=== PATIENT | male | born 1965 | race Caucasian/White ===

== ENCOUNTER → 2017-10-28 08:36 | Outpatient (CLI) | payer OTHER, SELFPAY ==
[2017-10-28 11:10] LABS: LDH 174 U/L (87-241)
[2017-10-29 11:59] LABS: AFP, Tumor Marker 1.8 ng/mL (0.0-8.3); HCG BETA-SUBUNIT QUANT. < 1 mIU/mL (0-3)
== END ==
PROVIDERS: Family Provider Family Medicine; PCP Family Medicine; Visit Provider Urology
DX: C62.90 Malignant neoplasm of unspecified testis, unspecified whether descended or undescended (principal)
CPT/HCPCS: 36415; 82105; 83615; 84702

== ENCOUNTER 2018-03-06 09:39 | Emergency (ER) | payer OTHER, SELFPAY ==
[2018-03-06 09:41] VITALS: BP 110/69; PULSE 54; RESP 16; TEMP 36.4; O2SAT 99; BMI 26.5
--- NOTE | 2018-03-06 09:45 | CT_ITS ---
STUDY: CT BRAIN WITHOUT CONTRAST REASON FOR EXAM: Male, 52 years old. Syncope while having bowel movement RADIATION DOSAGE (If Supplied By Facility): CTDIvol = ( 44.99 ) mGy, DLP = ( 745.49 ) mGycm TECHNIQUE: Transaxial CT imaging of the brain was performed without administration of intravenous contrast material. Individualized dose optimization techniques were used for this CT. COMPARISON: None. FINDINGS: Normal soft tissue structures. Normal calvarium. Normal size ventricles and extra-axial spaces for the patient's age. Normal white matter tracts of the cerebral hemispheres. Normal basal ganglia and thalami. Normal brainstem. Normal cerebellum. There is no intracranial hemorrhage. There are no findings of an acute ischemic infarction. Normal visualized paranasal sinuses. CT/Brain/Head without Contrast IMPRESSION: Normal unenhanced CT scan of the brain. Electronically Signed: Anthony Omer DO at 11:32 EDT Tel , Service support ,
--- NOTE | 2018-03-06 09:45 | EKG12_ITS ---
Test Reason : ALT MENTAL STATUS Blood Pressure : / mmHG Vent. Rate : 054 BPM Atrial Rate : 054 BPM P-R Int : 168 ms QRS Dur : 094 ms QT Int : 470 ms P-R-T Axes : 017 021 034 degrees QTc Int : 445 ms Sinus bradycardia Otherwise normal ECG Confirmed by PEREZ NELSON, GILLIAN ([id number]), news copy editor FOSTER KNUTSON ([id number]) on 03/08/2018 2:09:31 PM Referred By: HAYDEE Confirmed By:GILLIAN TODD MD
[2018-03-06 10:11] LABS: Absolute Lymphocyte Count 1.72 X10^3/ul (0.83-4.51); Absolute Neutrophil Count 3.7 X10^3/uL (2.0-7.7); Basophil# 0.03 X10^3/uL; Basophil% 0.5 % (0-1); Eosinophil# 0.17 X10^3/uL; Eosinophils% 2.9 % (0-5); Hematocrit 42.4 % (40-54); Lymphocyte # 1.72 X10^3/ul (4.0); Lymphocyte % 29.2 % (19-41); Mean Corpuscular Hgb 31.5 pg (27.0-32.0); Mean Corpuscular Volume 95.3 fL (80-94); Mean Platelet Vol. 12.2 fl (6.2-12.0); Monocyte% 5.1 % (0-10); Neutrophil # 3.66 X10^3/uL (2.7-7.7); Neutrophil % 62.1 % (47-70); Platelet Count 141 K/mm3 (150-450); RBC Distribution Width CV 13.1 % (11.6-14.6); RBC Distribution Width SD 45.3 fl (35.1-43.9); Red Blood Count 4.45 M/mm3 (4.6-6.2); White Blood Count 5.9 K/mm3 (4.4-11.0)
[2018-03-06 10:16] LABS: POSITIVE COUNT NO; POSITIVE DIFFERENTIAL NO; POSITIVE MORPHOLOGY NO
[2018-03-06 10:25] LABS: Anion Gap 4 (5-15); BUN 12 mg/dL (7-18); BUN/Creat Ratio 16.2 RATIO (10-20); Calcium,Total 8.1 mg/dL (8.5-10.1); Chloride 110 mmol/L (98-107); Creatinine, Serum 0.74 mg/dL (0.70-1.30); EST Glomerular Filtration Rate 117 mL/min (>60); Est Glom Filt Rate - Afr Amer 141 mL/min (>60); Estimated Creatinine Clearance 121.54 ml/min; Glucose 95 mg/dL (74-106); Potassium 3.8 mmol/L (3.5-5.1); Sodium Level 140 mmol/L (136-145)
[2018-03-06 10:30] VITALS: PULSE 56; RESP 18; O2SAT 98
--- NOTE | 2018-03-06 11:46 | NURSING ---
DR MAGALIS MEEKS
--- NOTE | 2018-03-06 11:56 | ED.DCSUM_ITS ---
- ER Visit Summary Date of Service: 03/06/18 Chief Complaint: Syncope History of Present Illness: The patient is a 52 M presenting for evaluation secondary to syncope. Patient was in the urology office today and he had a Urolift procedure performed. Patient was attempting to urinate after the procedure, and he passed out and struck the back of his head. states that he was a little bit confused after this. He then tried to urinate again and passed out again. Patient denies that he had any sort of chest pain or palpitations associated with this. No numbness or weakness or visual changes. He is not on any sort of anticoagulants. Physical Examination: Primary survey: Airway is patent, breath sounds equal bilateral, central peripheral pulses 2+ and symmetric, GCS 15 out of 15. Vitals within normal limits. Secondary survey: General: Well-nourished well-developed no acute distress Head: Normocephalic atraumatic Eyes: PERRLA, EOMI ENT: TMs clear no hemotympanum no drainage Neck: Nontender full range of motion, no step-offs noted Heart: Regular rate and rhythm no murmurs Lungs: Respirations nondistressed, lung sounds clear to auscultation bilaterally , chest nontender, normal chest excursion bilaterally Abdomen: Soft nontender nondistended normal bowel sounds no palpable abdominal masses Back: Nontender no step-offs noted Extremities: Nontender: Active full range of motion ?4 Skin: Normal color no trauma Neuro: Alert and oriented ?4, GCS 15 out of 15, no lateralizing neurological deficits. Test Results: CBC, chemistry, troponin unremarkable. EKG shows sinus bradycardia with a rate of [address] segments normal T waves normal intervals. CT brain found to be negative. Emergency Department Course and Treatment: Patient presented after passing out and striking his head. Workup was negative as noted above. Patient was trying to urinate when he passed out this seems like vagal event. He does not have any evidence of traumatic injury at this time, I do not believe that he requires observation admission for syncope. This point I believe the patient can safely be discharged. He will be discharged with outpatient follow-up with primary care. Disposition: Discharge Impression: 1. Vasovagal syncope This note was generated with [employer] dictation software. It may contain incorrect words, spelling, and punctuation that were not noted in review of the chart prior to signing ED Disposition - Plan for ED Patient: Disposition: Home or Assisted Living Chief Complaint: Mental Status Change Diagnosis: Vasovagal syncope Instructions: ED Syncope Vasovagal Referrals: Waldemar Steinberg MD [Primary Care Provider] - As Needed
--- NOTE | 2018-03-06 12:08 | NURSING ---
DR BLANCAS IN ER
[2018-03-06 12:12] VITALS: BP 113/69; PULSE 72; RESP 16; O2SAT 99
== END 2018-03-06 12:13 | disposition home or self-care (01) ==
PROVIDERS: Emergency Provider Emergency Medicine; Family Provider Family Medicine; PCP Family Medicine
DX: R55 Syncope and collapse (principal); I10 Essential (primary) hypertension; Z79.82 Long term (current) use of aspirin; Z79.899 Other long term (current) drug therapy
CPT/HCPCS: 70450; 80048; 84484; 85025; 93005; 99285

== ENCOUNTER 2018-05-24 05:22 | Emergency (ER) | payer OTHER, SELFPAY ==
[2018-05-24 05:23] VITALS: BP 130/85; PULSE 72; RESP 22; TEMP 36.8; O2SAT 98; BMI 26.4
--- NOTE | 2018-05-24 05:24 | ED.VISSUMM ---
- ER Visit Summary Date of Service: 05/24/18 Chief Complaint: Right foot swelling History of Present Illness: The patient is a 52 M presents to the emergency department with right foot swelling and pain. Patient states that he was bit by something on Tuesday evening. He suffered a bite to the dorsum of his right foot just at the base of his third and fourth toes. States that it was itching. Over the past 3 days, he began to develop some redness and worsening pain. He denies any fevers or chills. He has no history of diabetes. The patient does smoke. He denies any history of cellulitis or immunosuppression. He states that it was just more painful to walk on it over the past 2 days. Physical Examination: Exam is relatively unremarkable. Patient does have healing wound on the dorsum of the right foot between the third and fourth toes. There is some localized cellulitis and edema. His pulses are normal. There is no crepitus. There is no streaking up the leg. Foot is soft. No pain in the calf. Test Results: [] Emergency Department Course and Treatment: The patient has evidence of cellulitis of the foot. I do feel secondary to the skin breakdown. There is no streaking or crepitus. Do not suspect a dangerous process. He said the symptoms for 2 days. I do not suspect osteomyelitis. The patient will be treated with Bactrim and Keflex. He was counseled on concerning symptoms and reasons to return. I do want the patient to follow-up with his primary care physician in the next 48 hours for skin check or return with any worsening symptoms. He is comfortable with this plan of care. Treatment Plan: [] Disposition: Discharge Impression: Right foot cellulitis This note was generated with [employer] dictation software. It may contain incorrect words, spelling, and punctuation that were not noted in review of the chart prior to signing ED Disposition - Plan for ED Patient: Chief Complaint: Lower Extremity Injury Instructions: ED Infec Skin Cellulitis Prescriptions: Cephalexin [Keflex] 500 mg PO Q6 #40 cap Smz/Tmp Ds [Bactrim Ds] 1 tab PO BID #14 tab Referrals: Waldemar Steinberg MD [Primary Care Provider] - 2 Days for wound check
[2018-05-24] MEDS: Smz/Tmp Ds Tablet 1 TABLET PO (05:34)
[2018-05-24] MEDS: Cephalexin 250 MG Capsule 500 MG PO (05:34)
== END 2018-05-24 05:36 | disposition home or self-care (01) ==
LOC: ED 05:30
PROVIDERS: Emergency Provider Emergency Medicine; Family Provider Family Medicine; PCP Family Medicine
DX: L03.115 Cellulitis of right lower limb (principal); I10 Essential (primary) hypertension; Z79.82 Long term (current) use of aspirin; Z79.899 Other long term (current) drug therapy; Z72.0 Tobacco use
CPT/HCPCS: 99284

== ENCOUNTER → 2018-06-26 11:11 | Outpatient (CLI) | payer OTHER, SELFPAY ==
[2018-06-26 12:27] LABS: PSA,Total- Diagnostic 0.91 ng/mL (0.0-4.0)
== END ==
PROVIDERS: Family Provider Family Medicine; PCP Family Medicine; Visit Provider Urology
DX: C61 Malignant neoplasm of prostate (principal)
CPT/HCPCS: 36415; 84153

== ENCOUNTER → 2020-03-04 10:31 | Outpatient (CLI) | payer OTHER, SELFPAY ==
[2020-03-04 12:59] LABS: ALB/GLOB Ratio 1.3 RATIO (0.9-2.4); AST(SGOT) 13 U/L (15-37); Alanine Aminotransfer ALT/SGPT 24 U/L (16-61); Albumin, Serum 3.9 g/dL (3.2-5.0); Alkaline Phosphatase 91 U/L (45-117); Anion Gap 4 (5-15); BUN 14 mg/dL (7-18); BUN/Creat Ratio 18.1 RATIO (10-20); Calcium,Total 8.8 mg/dL (8.5-10.1); Chloride 112 mmol/L (98-107); Cholesterol 230 mg/dL (200); Creatinine, Serum 0.77 mg/dL (0.70-1.30); EST Glomerular Filtration Rate 111 mL/min (>60); Est Glom Filt Rate - Afr Amer 134 mL/min (>60); Globulin 3.1 g/dL (2.2-4.2); Glucose 93 mg/dL (74-106); High Density Lipoprotein 55 mg/dL; Potassium 4.4 mmol/L (3.5-5.1); Sodium Level 142 mmol/L (136-145); Triglycerides 173 mg/dL; Very Low Density Lipoprotein 35 mg/dL (5-40)
== END ==
PROVIDERS: PCP Family Medicine; Visit Provider Family Medicine
DX: E78.00 Pure hypercholesterolemia, unspecified (principal); I10 Essential (primary) hypertension
CPT/HCPCS: 36415; 80053; 80061

== ENCOUNTER → 2020-10-03 12:06 | Outpatient (CLI) | payer OTHER, SELFPAY ==
--- NOTE | 2020-10-03 12:08 | RAD_ITS ---
STUDY: X-RAY - PELVIS AND LEFT HIP REASON FOR EXAM: Male, 55 years old. PAIN IN LEFT HIP AND FEELS LIKE IT GOES OUT ON HIM. NO KNOWN INJURY. TECHNIQUE: 3 views of the pelvis and hip. COMPARISON: None. FINDINGS: There is a non-specific bowel gas pattern. Normal visualized soft tissue structures. Normal bilateral iliac wings, sacroiliac joints and visualized sacrum. Normal bilateral superior and inferior pubic rami. Normal pubic symphysis. Normal bilateral ischial tuberosities. There is a linear radiolucency of the medial aspect of the femoral head neck junction possibly consistent with an fatigue (stress) fracture. Normal acetabulum. Normal hip joint. RAD/HIP, UNI W/ Pelvis 2-3 Views IMPRESSION: Questionable fatigue (stress) fracture of the femoral neck and correlation with MRI would be useful. Electronically Signed: Wero López MD at 17:13 EST Tel , Service support ,
--- NOTE | 2020-10-03 12:14 | RAD_ITS ---
STUDY: X-RAY - LEFT ANKLE REASON FOR EXAM: Male, 55 years old. PAIN IN LEFT ANKLE ANTERIORLY. PATIENT STATES IT IS VERY STIFF AND HARD TO FLEX IT UP. TECHNIQUE: 3 view(s) of the ankle. COMPARISON: None. FINDINGS: Normal visualized distal tibia and fibula. Normal medial and lateral malleoli. Normal tibiotalar articulation and ankle mortise. Normal visualized talus and calcaneus. Small plantar posterior calcaneal enthesophytes. The visualized subtalar, talonavicular, calcaneocuboid and tarsal articulations are normal. The soft tissue structures are unremarkable. RAD/Ankle min 3 Views IMPRESSION: Normal x-ray examination of the ankle. Electronically Signed: Wero López MD at 17:13 EST Tel , Service support ,
[2020-10-03 15:08] LABS: Absolute Lymphocyte Count 1.99 X10^3/uL (0.83-4.51); Absolute Neutrophil Count 3.8 X10^3/uL (2.0-7.7); Basophil# 0.05 X10^3/uL; Basophil% 0.8 % (0-1); Eosinophil# 0.26 X10^3/uL; Eosinophils% 3.9 % (0-5); Hematocrit 42.8 % (40-54); Hemoglobin 13.5 g/dL (13.0-16.5); Lymphocyte # 1.99 X10^3/ul (4.0); Mean Corp Hgb Conc 31.5 g/dL (32-36); Mean Corpuscular Hgb 30.5 pg (27.0-32.0); Mean Corpuscular Volume 96.8 fL (80-94); Monocyte% 7.5 % (0-10); NRBC Flagged by Analyzer 0 % (0-5); Neutrophil # 3.81 X10^3/uL (2.7-7.7); Neutrophil % 57.3 % (47-70); Platelet Count 213 K/mm3 (150-450); RBC Distribution Width SD 45.8 fl (35.1-43.9); Red Blood Count 4.42 M/mm3 (4.6-6.2); White Blood Count 6.6 K/mm3 (4.4-11.0)
[2020-10-03 15:30] LABS: Vitamin B12 711 pg/mL (211-911); Vitamin D,25 Hydroxy 28.5 ng/mL
[2020-10-03 15:48] LABS: ALB/GLOB Ratio 1.1 RATIO (0.9-2.4); AST(SGOT) 20 U/L (15-37); Alanine Aminotransfer ALT/SGPT 39 U/L (16-61); Alkaline Phosphatase 93 U/L (45-117); Anion Gap 5 (5-15); BUN 16 mg/dL (7-18); BUN/Creat Ratio 17.9 RATIO (10-20); Calcium,Total 9.2 mg/dL (8.5-10.1); Chloride 107 mmol/L (98-107); Creatinine, Serum 0.89 mg/dL (0.70-1.30); EST Glomerular Filtration Rate 93 mL/min (>60); Est Glom Filt Rate - Afr Amer 113 mL/min (>60); Globulin 3.8 g/dL (2.2-4.2); Glucose 71 mg/dL (74-106); Potassium 4.2 mmol/L (3.5-5.1); Protein, Total 7.8 g/dL (6.4-8.2); Sodium Level 142 mmol/L (136-145); Thyroid Stim Hormone (TSH) 1.31 uIU/mL (0.358-3.74)
== END ==
PROVIDERS: PCP Family Medicine; Referring Provider Family Medicine; Visit Provider Family Medicine
DX: M25.572 Pain in left ankle and joints of left foot (principal); M25.552 Pain in left hip; R41.3 Other amnesia
CPT/HCPCS: 36415; 73502; 73610; 80053; 82306; 82607; 84443; 85025

== ENCOUNTER → 2020-10-17 09:12 | Outpatient (CLI) | payer OTHER, SELFPAY ==
[2020-10-17 11:10] LABS: PSA,Total - Annual Screen 1.17 ng/mL (0.00-4.00)
== END ==
PROVIDERS: PCP Family Medicine; Referring Provider Urology; Visit Provider Urology
DX: Z12.5 Encounter for screening for malignant neoplasm of prostate (principal)
CPT/HCPCS: 36415; 84153; G0103

== ENCOUNTER → 2020-10-28 06:15 | Outpatient (CLI) | payer OTHER, SELFPAY ==
--- NOTE | 2020-10-28 06:39 | MRI_ITS ---
STUDY: MRI BRAIN WITH AND WITHOUT CONTRAST REASON FOR EXAM: Male, 55 years old. memory loss, tinnitus. Hx of testicular CA TECHNIQUE: Standardized multiplanar fat and water weighted pulse sequences were obtained. IV Yes YES was administered for the contrast portion of the examination. COMPARISON: CT 03/06/2018 FINDINGS: Normal size of the ventricles and extra-axial spaces for the patient''s age. Normal white matter tracts of the supratentorial brain. There is no evidence for recent intracranial ischemia or other cause of cytotoxic edema on diffusion weighted imaging (DWI). Normal T2* images of the brain without demonstrated susceptibility artifact. There is no demonstrated hemosiderin stain. Normal bilateral basal ganglia. Normal thalami. There is no extra-axial fluid accumulation. Normal flow voids within the major intracranial circulation suggesting patency by spin echo criteria. Normal venous enhancement. There is no enhancing intra-axial or extra-axial abnormality. Normal sella turcica, pituitary gland, infundibular stalk, optic chiasm and hypothalamus. Normal tectal plate and pineal gland. Normal midbrain, yesenia and medulla. Normal cerebellum. Normal basal cisterns. Normal bilateral temporal bones. Normal bilateral internal auditory canals. No demonstrated orbital abnormality, within the constraints of a routine brain study. Normal visualized paranasal sinuses. Normal calvarium and skull base. Normal visualized soft tissue structures. Normal visualized upper cervical spine. MRI/Brain W/WO Contrast IMPRESSION: Normal unenhanced and enhanced MRI of the brain. Electronically Signed: Wero López MD at 9:03 EST Tel , Service support ,
--- NOTE | 2020-10-28 06:39 | MRI_ITS ---
STUDY: MRI LEFT HIP REASON FOR EXAM: Male, 55 years old. left hip pain, dislocationx 1 year. Hx of testicular CA TECHNIQUE: Standardized fat and water weighted pulse sequences were obtained in all 3 orthogonal planes. COMPARISON: X-ray dated 2019. FINDINGS: Mild cartilage loss at the superior anterior left hip joint with reactive bone marrow edema/contusion (coronal image 18 series 5). No acute fracture line. No acute dislocation. No acute bone destruction. Small left hip superior labral tear (coronal image 17 series 5). Intact femoral head. Intact femoral neck and intratrochanteric region. Mild bilateral gluteus medius/minimus tendinosis with peritendinitis. No trochanteric, iliopsoas or iliopectineal bursitis. Intact superior and inferior pubic rami. Intact pubic symphysis. Intact ischial tuberosity. Mild bilateral hamstring tendinosis without tendon tear. Intact visualized iliac wing, sacroiliac joint, and sacral ala. Mild urinary bladder wall thickening (axial image 21 series 2). Borderline prostatomegaly with postsurgical change measuring 4.4 cm. Small fat-containing inguinal hernias. MRI/Lower Ext Joint Only (Routine) IMPRESSION: Mild left hip cartilage loss with acetabular bone marrow edema/contusion Small left hip superior labral tear Mild bilateral gluteus medius/minutes tendinosis with peritendinitis Mild bilateral hamstring tendinosis Mild urinary bladder wall thickening (potential chronic process) Borderline prostatomegaly with postsurgical change Electronically Signed: Atul Childs DO at 12:45 EST Tel , Service support ,
== END ==
PROVIDERS: PCP Family Medicine; Referring Provider Family Medicine; Visit Provider Family Medicine
DX: M25.552 Pain in left hip (principal); R41.3 Other amnesia
CPT/HCPCS: 70553; 73721; A9575

== ENCOUNTER 2020-11-12 07:39 | Day surgery (SDC) | payer OTHER, SELFPAY ==
[2020-11-12] VITALS (7 sets, daily range): BP systolic 85–117; BP diastolic 55–79; PULSE 58–65; RESP 16; TEMP 36.2–36.5; O2SAT 93–98; BMI 27.6
[2020-11-12] MEDS: Lactated Ringers 1,000 ML 100 ML IV (08:15)
--- NOTE | 2020-11-12 09:03 | HP.PCM_ITS ---
History of Present Illness Date of Admission: 11/12/20 The patient is a 55 year old M for screening colon cancer. Had a colonoscopy about [address] Simon per patient couple polyps was told 10 years. Patient hit his head during that time they do not want to go through anesthesia and then Covid happened. Patient denies any chronic abdominal pain nausea or vomiting or reflux. Patient has bowel movements mostly every day. No family history of colon cancer. Past Medical/Surgical History - Planned Operation Planned Operative Procedure/s: COLONOSCOPY Date of Operative Procedure: 11/12/20 Permit Signed: Yes S.O.S: No Is This Patient Having a Total Joint: No - Previous Hospitalizations/Surgeries HX Hospitalizations: No HX of Surgeries: TONSILLECTOMY 1968. DEVIATED SEPTUM 1992. RIGHT HAND SURGERY 1997. COLONOSCOPY 2010 Any Problems With Anesthesia: Yes - SLOW TO AWAKEN FROM ANESTHESIA You/Your Family Experience Fever (Hyperthermia) With Anes: No Cholinesterase deficiency: No - Cardiovascular Hx Chest Pain within Last 2 months: No Hx of Irregular Heartbeat and/or Afib: No Hx Heart Attack: No Hx Congestive Heart Failure: No Hx Rheumatic Fever: No Hx Hypertension: Yes - ON MEDS BP CONTROLLED Hx Internal Defibrillator: No Hx Pacemaker: No Hx Cardiac Catheterization: No Hx Cardiac Surgery/Stents/Etc.: No Hx Stress Test: Yes - YRS AGO [facility] Hx Pain in Legs when Walking/Leg Cramps: Yes - PAIN AND CRAMPS - Respiratory Chronic Cough: No HX of Shortness of Breath: No Hoarseness: No Hx Chronic Obstructive Pulmonary Disease (COPD): No Hx Asthma: No Hx Emphysema: No Hx Sleep Apnea: No Hx Respiratory Tract Infection/Cold (presently): No Do You Snore Loudly (louder than talking or can be heard): Yes Do You Often Feel Tired/ Fatigued/ Sleepy Dring Daytime?: No Has Anyone Observed You Stop Breathing During Sleep?: No Result (for STOP score): Positive Hx Smoking: Yes - QUIT 02/2020 Smoking Status: Former smoker - Gastrointestinal Hx Gastroesophageal Reflux: No Hx Gastrointestinal Disorders: No Hx Gastrointestinal Bleed: No Hx Ulcer: No Hx Hiatal Hernia: No Difficulty Chewing/Swallowing: No Recent Onset of Swallowing Problems: No Special diet followed at home: No Hx Unplanned Weight Loss of 20#: No HX Unplanned Weight Gain of 20#: No - Neurological Hx Seizures: No HX Syncope/Blackout Spells/Unconsciousness: No Hx CVA/Stroke: No Hx Transient Ischemic Attacks (TIA): No Hx Multiple Sclerosis: No Hx Parkinson's Disease: No Hx Head/Neck Injury: No Hx Headaches: No Hx Back Injury/Pain: Yes - BACK PAIN CHRONIC Recent Onset of Speech Difficulty: No Restless Legs: Yes Does patient have nerve stimulator: No - Blood Disorder Hx Leukemia: No Bleeding Tendencies: No Hx Deep Vein Thrombosis: No Hx High Cholesterol: Yes - FORMERLY/RESOLVED NOW Blood Transmitted Disease: No Hx Hepatitis: No Hx Cirrhosis: No Hx Anemia: No Hx Blood Disorders: No - Genitourinary Hx Renal Disease: No - 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, HAS HAD UROLIFT - Musculoskeletal Hx Arthritis: Yes Hx Rheumatoid Arthritis: No Hx Gout: No Recent Onset of an Orthopedic Problem: Yes - ANICETO [place] HIP - Endocrine Hx Diabetes: No Thyroid Disease: No Hx Steroid Therapy: No - Psycho/Social Hx Substance Use: No Hx Alcohol Use: No Hx Anxiety: No Hx Depression: Yes Mental Illness: No Hx Dementia: No - Miscellaneous Hx Cancer: Yes - TESTICULAR CA Recent Exposure to Contagious Disease: No Active MRSA: No Hx of C-Diff: No Any Loose Teeth: No - UPPER DENTURE Additional information pertinent to anesthesia:: RECENT RINGING IN EARS Allergies No Known Allergies Allergy (Verified 11/12/20 08:09) - Discharge Is Pt Admitted From a Jail, or a Senior Care: No Who Could Help: CONSUELO After D/C, Where Do you Plan to Go: Return Home - Physical Exam Vitals/I&O's: Vital Signs Temp Pulse Resp BP Pulse Ox 97.4 F L 65 16 117/79 96 11/12/20 08:10 11/12/20 08:10 11/12/20 08:10 11/12/20 08:10 11/12/20 08:10 Oxygen Delivery Method Room Air Weight: 208 lb 15.971 oz Body Mass Index (BMI) 27.6 General: Alert, Oriented x3, Cooperative, No apparent distress HEENT: Atraumatic Lungs: Normal air movement Cardiovascular: Regular rate Abdomen: Soft, Non Tender, Non-Distended Extremities: No clubbing, No cyanosis, No edema Neurological: Cranial nerves II-XII grossly intact Psych/Mental Status: Normal Affect Current Medications Lactated Ringer's () 1,000 mls @ 100 mls/hr IV .Q10H [facility] Last Admin: 11/12/20 08:15 Dose: 100 mls/hr Documented by: Assessment/Plan 55-year-old male screening for colon cancer Procedure Criteria Procedure Type: Elective COVID Risk Discussion: The surgeon/proceduralist and patient have discussed in detail the risk of exposure to and/or potential harm posed by the COVID-19 virus with having a surg janett/procedure at this time versus the risk of delaying the surgery/procedure. It is not possible to know either the risk of delaying the surgery or procedure or chance of getting an infection with perfect accuracy, but a joint decision was made between the patient and the surgeon/proceduralist to proceed at this time with the scheduled surgery/procedure as indicated on the consent form. Surgery Risks - Colonoscopy I discussed with the patient the risks of the procedure: Yes Risks Include but are not Limited To: Risks include but are not limited to: Bleeding, perforation requiring further surgery, inability to complete colonoscopy requiring barium enema.
--- NOTE | 2020-11-12 09:46 | OP.COLON_ITS ---
Patient Name: Elijah Recinos Procedure Date: 11/12/2020 9:13 AM Date of : 1965 Age: 55 Procedure: Colonoscopy Indications: Screening for colorectal malignant neoplasm Providers: Jesenia Hensley MD Referring MD: Waldemar Perez Md Medicines: Monitored Anesthesia Care Patient Profile: This is a 55 year old male. Last Colonoscopy: 2012. Complications: No immediate complications. Procedure: Pre-Anesthesia Assessment: - Prior to the procedure, a History and Physical was performed, and patient medications and allergies were reviewed. The patient's tolerance of previous anesthesia was also reviewed. The risks and benefits of the procedure and the sedation options and risks were discussed with the patient. All questions were answered, and informed consent was obtained. Prior Anticoagulants: The patient has taken no previous anticoagulant or antiplatelet agents. ASA Grade Assessment: Per anesthesia. After reviewing the risks and benefits, the patient was deemed in satisfactory condition to undergo the procedure. After I obtained informed consent, the scope was passed under direct vision. Throughout the procedure, the patient's blood pressure, pulse, and oxygen saturations were monitored continuously. The Colonoscope was introduced through the anus and advanced to the cecum, identified by the appendiceal orifice, ileocecal valve and palpation. The colonoscopy was performed without difficulty. The patient tolerated the procedure well. The quality of the bowel preparation was good. Scope In: 9:19:15 AM Scope Withdrawal Time 0 hours 11 minutes 10 seconds Scope Out: 9:42:31 AM Total Procedure Duration Time 0 hours 23 minutes 16 seconds Findings: The perianal and digital rectal examinations were normal. The entire examined colon appeared normal on direct and retroflexion views. Impression: - The entire examined colon is normal on direct and retroflexion views. - No specimens collected. Recommendation: - Discharge patient to home. - Resume previous diet. - Continue present medications. - Repeat colonoscopy in 10 years for screening purposes. Procedure Code(s): --- Professional --- G0121, PT, Colorectal cancer screening; colonoscopy on individual not meeting criteria for high risk Diagnosis Code(s): --- Professional --- Z12.11, Encounter for screening for malignant neoplasm of colon CPT copyright 2017 [employer]. All rights reserved. The codes documented in this report are preliminary and upon day haul or farm charter bus driver review may be revised to meet current compliance requirements. MD Jesenia Verdin MD 11/12/2020 9:45:54 AM This report has been signed electronically. Number of Addenda: 0 Note Initiated On: 11/12/2020 9:13 AM
--- NOTE | 2020-11-12 09:46 | OP.CCLET_ITS ---
11/12/2020 Waldemar Perez Md Re : Colonoscopy procedure for Elijah Recinos Dear Chris This procedure was performed on Thursday, November 12, 2020. My impressions and recommendations are as follows: Impressions : - The entire examined colon is normal on direct and retroflexion views. - No specimens collected. Recommendations : - Discharge patient to home. - Resume previous diet. - Continue present medications. - Repeat colonoscopy in 10 years for screening purposes. My findings are described in the full procedure note, which is enclosed. If I can be of further assistance, please feel free to contact me at Doctor phone number(s): , Work: . Sincerely, MD Jesenia Verdin MD 11/12/2020 9:45:54 AM This report has been signed electronically.
== END 2020-11-12 10:41 | disposition home or self-care (01) ==
LOC: EN 07:45 → AC 07:45
PROVIDERS: PCP Family Medicine; Referring Provider Family Medicine; Visit Provider Surgery
PROC: 0DJD8ZZ Inspection of Lower Intestinal Tract, Via Natural or Artificial Opening Endoscopic (ICD-10-PCS; CPT 45378; principal; 2020-11-12 08:40)
DX: Z12.11 Encounter for screening for malignant neoplasm of colon (principal); I10 Essential (primary) hypertension; G25.81 Restless legs syndrome; M19.90 Unspecified osteoarthritis, unspecified site; F32.9 Major depressive disorder, single episode, unspecified; Z85.47 Personal history of malignant neoplasm of testis; Z79.899 Other long term (current) drug therapy; Z87.891 Personal history of nicotine dependence
CPT/HCPCS: 45378; J7120

== ENCOUNTER → 2020-12-01 16:18 | Outpatient (CLI) | payer OTHER, SELFPAY ==
[2020-11-12 08:10] VITALS: BMI 27.6
[2020-12-01 18:07] LABS: LDH 211 U/L (87-241); PSA,Total- Diagnostic 0.94 ng/mL (0.0-4.0)
[2020-12-03 08:24] LABS: AFP, Tumor Marker 2.7 ng/mL (0.0-8.3)
[2020-12-03 17:20] LABS: HCG BETA-SUBUNIT QUANT. 1 mIU/mL (0-3)
== END ==
PROVIDERS: PCP Family Medicine; Referring Provider Urology; Visit Provider Urology
DX: C62.11 Malignant neoplasm of descended right testis (principal)
CPT/HCPCS: 36415; 82105; 83615; 84153; 84702

== ENCOUNTER → 2021-07-21 16:04 | Outpatient (CLI) | payer OTHER, SELFPAY ==
[2021-07-21 18:08] LABS: Absolute Lymphocyte Count 1.67 X10^3/uL (0.83-4.51); Absolute Neutrophil Count 5.4 X10^3/uL (2.0-7.7); Basophil# 0.06 X10^3/uL; Basophil% 0.7 % (0-1); Eosinophil# 0.28 X10^3/uL; Eosinophils% 3.5 % (0-5); Hematocrit 37.5 % (40-54); Hemoglobin 12.2 g/dL (13.0-16.5); Lymphocyte # 1.67 X10^3/ul (0.83-4.51); Lymphocyte % 20.8 % (19-41); Mean Corp Hgb Conc 32.5 g/dL (32-36); Mean Corpuscular Volume 92.4 fL (80-94); Mean Platelet Vol. 11.9 fl (6.2-12.0); Monocyte# 0.56 X10^3/uL; NRBC Flagged by Analyzer 0 % (0-5); Neutrophil # 5.41 X10^3/uL (2.7-7.7); Neutrophil % 67.5 % (47-70); Platelet Count 268 K/mm3 (150-450); RBC Distribution Width CV 13.8 % (11.6-14.6); RBC Distribution Width SD 46.6 fl (35.1-43.9); Red Blood Count 4.06 M/mm3 (4.6-6.2)
[2021-07-21 19:01] LABS: Thyroid Stim Hormone (TSH) 1.53 uIU/mL (0.358-3.74)
[2021-07-21 19:06] LABS: Vitamin B12 730 pg/mL (211-911)
== END ==
PROVIDERS: PCP Family Medicine; Referring Provider Family Medicine; Visit Provider Family Medicine
DX: R53.83 Other fatigue (principal)
CPT/HCPCS: 36415; 82607; 84443; 85025

== ENCOUNTER 2021-08-08 07:55 | Emergency (ER) | payer OTHER, SELFPAY ==
[2021-08-08] VITALS (12 sets, daily range): BP systolic 110–141; BP diastolic 77–95; PULSE 72–168; RESP 19–23; TEMP 36.8; O2SAT 95–97; BMI 28.8
--- NOTE | 2021-08-08 08:07 | ED.VIS.CHEST ---
HPI History of Present Illness Chief Complaint: Chest Pain Informant: patient and spouse/S.O. Onset/Context/Timing Onset: Yesterday Activity at onset: gradual Timing: Continuous Quality: Positive for Tightness Location: Right Chest, Left Chest and - (Lower chest and upper abdomen) Worsened By: - (Laying flat) Relieved By: - (Belching) Associated Symptoms: Positive for Dyspnea and Acid Reflux; Negative for Nausea, Vomiting, Diaphoresis, Cough, Fever, Lightheadedness and Palpitations Narrative Narrative: Patient presents with chest pain that began yesterday. Patient states it is over his lower chest and upper abdomen. Patient states it is worse whenever he lays flat and it is better when he sits up and belches. Patient admits to some shortness of breath with it. Patient states his shortness of breath has gradually gotten worse over the past 2-3 weeks. Patient denies any nausea or vomiting. Patient states he has felt hot but has not had any diaphoresis. Patient denies any cough or fevers. Patient denies any lightheadedness or dizziness. Patient denies any palpitations. CVD Risk Factors: Positive for Hypertension; Negative for Diabetes, Hypercholesterolemia, Family History 1' </=55 and Smoking [facility] Medical History (Updated 08/08/21 @ 12:[address] Atul Montgomery, ) Anxiety Depression Hypertension Testicular cancer Home Medications aspirin 81 mg PO DAILY@0800 09/07/16 [History Last Taken 08/19/16 09:00] cholecalciferol (vitamin D3) [Vitamin D] 2,000 unit PO DAILY 09/07/16 [History Last Taken Unknown] garlic 500 mg PO DAILY 09/07/16 [History Last Taken Unknown] metoprolol tartrate 25 mg PO DAILY 09/07/16 [History Last Taken 09/10/16 09:00] omega-3 fatty acids 800 mg PO DAILY 09/07/16 [History Last Taken Unknown] multivitamin [Multiple Vitamins] 1 ea PO DAILY 03/06/18 [History Last Taken Unknown] sertraline 100 mg PO DAILY 05/24/18 [History Last Taken Unknown] meloxicam 15 mg PO DAILY 11/12/20 [History Last Taken Unknown] metoprolol tartrate 25 mg PO BID #30 tab 08/08/21 [Rx Last Taken Unknown] Allergy/AdvReac Type Severity Reaction Status Date / Time No Known Allergies Allergy Verified 11/12/20 08:09 Surgical History (Updated 08/08/21 @ 08:[address] Atul Montgomery DO) History of hip surgery Social History Smoking Status: Former smoker ROS ROS ED Constitutional Constitutional ED: Denies chills or fever(s) Eyes Eyes: Denies blurry vision or change in vision ENT ENT ED: Denies rhinorrhea or sore throat Cardiovascular Cardiovascular: Reports chest pain; Denies palpitations Respiratory/Chest Respiratory/Chest: Reports dyspnea; Denies cough Gastrointestinal Gastrointestinal: Denies abdominal pain, nausea or vomiting Genitourinary Genitourinary ED: Denies dysuria or hematuria Musculoskeletal Musculoskeletal: Denies back pain or neck pain Integumentary Denies abscess or rash Neurologic Neurologic: Denies headache(s) or weakness Allergic/Immunologic Allergic/Immunologic ED: Denies mouth swelling or urticaria EXAM Physical Exam Const Vital Signs: 08/08/21 07:56 08/08/21 08:16 08/08/21 08:18 Temperature 98.2 F Temperature Source Oral Pulse Rate 93 91 Respiratory Rate 19 H 23 H Blood Pressure 138/95 H 141/91 H Blood Pressure Mean 109 107 Pulse Ox 97 96 Oxygen Delivery Method Room Air Room Air Room Air 08/08/21 08:32 08/08/21 08:34 08/08/21 08:37 Temperature Temperature Source Pulse Rate 168 H 137 H 128 H Respiratory Rate Blood Pressure Blood Pressure Mean Pulse Ox Oxygen Delivery Method 08/08/21 08:58 08/08/21 09:03 08/08/21 09:11 Temperature Temperature Source Pulse Rate 131 H 96 79 Respiratory Rate 19 H Blood Pressure 124/88 H Blood Pressure Mean 100 Pulse Ox 95 Oxygen Delivery Method Room Air 08/08/21 09:35 08/08/21 10:15 08/08/21 12:08 Temperature Temperature Source Pulse Rate 75 73 Respiratory Rate 21 H Blood Pressure 116/84 H 110/77 Blood Pressure Mean 94 88 Pulse Ox 96 97 Oxygen Delivery Method Room Air Positive well nourished and well developed General Appearance ED: well developed HEENT normocephalic and atraumatic Eyes PERRL and EOMs intact bilaterally Neck supple and no JVD Chest Wall inspection of chest normal Chest Narrative: There is mild reproducible tenderness over the lower chest. Resp normal respiratory effort and clear to auscultation bilaterally Effort and Inspection: Negative for respiratory distress Cardio regular rate, regular rhythm and no murmurs GI normal to inspection, nondistended, normoactive bowel sounds, soft to palpation and non-distended GI Narrative: There is mild tenderness over the epigastric area and upper abdomen. There is no rebound or guarding noted. Extremity normal to inspection General Extremety ED: Negative for edema or tenderness General Extremity: Negative for edema Neuro oriented x3, CN's II-XII intact bilaterally and no sensory deficits noted Sensorium / Orientation: awake and alert Motor Exam: strength 5/5 throughout Psych mental status grossly normal Heart Score History: Moderately Suspicious ECG: Normal Age: >45 - <65 years Risk Factors: 1 or 2 Risk Factors Troponin: </= Normal Limit Score: 3 MDM MDM MDM Narrative Medical decision making narrative: EKG was obtained. On my interpretation, it showed a normal sinus rhythm with a rate of 94. GA interval, QRS interval, and QTc intervals were all normal. [place] was normal. There are no acute ST or T wave changes. Portable 1 view chest x-ray was obtained. On my interpretation, lung springer are clear. There is normal cardiac silhouette. Bony thorax is normal. There is no acute process noted. Radiologist also interpreted the x-ray and agrees. Patient was noted to be tachycardic on the monitor. Repeat EKG showed atrial fibrillation with a rate of 141. There are no acute ST or T wave changes. Patient is vital signs remained stable. Patient was given a dose of Cardizem here. Patient converted back to a normal sinus rhythm with frequent PVCs. There are no acute ST or T wave changes. PVCs improved on the monitor. CBC and basic metabolic profile were within normal limits. D-dimer was elevated 2.89. Because of this, CTA of the chest was obtained. There is no evidence of pulmonary embolism. There is a pericardial effusion. There is atelectasis versus infiltrates in the bases bilaterally. There are small pleural effusions noted. This was interpreted by the radiologist and reviewed by myself. High-sensitivity troponin was normal. 2-hour repeat high-sensitivity troponin was unchanged. Case was discussed with Dr. Christensen from cardiology. He recommended starting the patient on metoprolol 25 mg twice daily. Patient was given a prescription for this. Patient was instructed to follow-up with his primary care physician in 5 to 7 days. Patient was also instructed to follow-up with cardiology in 3 to 5 days. Patient and spouse understood and were agreeable with the plan. All questions were answered. Lab Data Attestation: I reviewed the patient's lab results. Labs: Laboratory Results - last 24 hr 08/08/21 08/08/21 08/08/21 08:12 08:12 08:12 WBC 9.3 RBC 3.60 L Hgb 11.0 L Hct 34.0 L MCV 94.4 H MCH 30.6 MCHC 32.4 RDW Std Deviation 48.4 H RDW Coeff of Jennifer 14.0 Plt Count 237 MPV 12.1 H Immature Gran % (Auto) 0.400 Neut % (Auto) 78.5 H Lymph % (Auto) 13.5 L [place] % (Auto) 5.6 Eos % (Auto) 1.5 Baso % (Auto) 0.5 Absolute Neuts (auto) 7.3 Absolute Lymphs (auto) 1.26 Nucleated RBC % 0 D-Dimer Quant (PE/DVT) 2.89 H* Sodium 139 Potassium 3.6 Chloride 106 Carbon Dioxide 25.0 Anion Gap 8 BUN 15 Creatinine 1.05 Estim Creat Clear Calc 84.17 Est GFR (MDRD) Af Amer 93 Est GFR (MDRD) Non-Af 77 BUN/Creatinine Ratio 14.3 Glucose 173 H Calcium 8.6 Troponin I High Sens 8 08/08/21 11:00 WBC RBC Hgb Hct MCV MCH MCHC RDW Std Deviation RDW Coeff of Jennifer Plt Count MPV Immature Gran % (Auto) Neut % (Auto) Lymph % (Auto) [place] % (Auto) Eos % (Auto) Baso % (Auto) Absolute Neuts (auto) Absolute Lymphs (auto) Nucleated RBC % D-Dimer Quant (PE/DVT) Sodium Potassium Chloride Carbon Dioxide Anion Gap BUN Creatinine Estim Creat Clear Calc Est GFR (MDRD) Af Amer Est GFR (MDRD) Non-Af BUN/Creatinine Ratio Glucose Calcium Troponin I High Sens 8 Radiography Chest X-Ray - ED: 1 View, Read by ED Physician, Read by Radiologist and Normal Diagnostic Testing: Clinical Impression(s) from Imaging Studies Chest X-Ray 08/08/21 08:23 IMPRESSION: No radiographic evidence of acute cardiopulmonary disease. at 0905 Reported and signed by: Wayne Gonzales MD Electronically Signed: Wayne Gonzales MD at 9:04 EDT Tel , Service support , Chest CTA 08/08/21 09:02 IMPRESSION: 1. No evidence of pulmonary embolus. 2. Enlarged mediastinal lymph nodes which may be reactive or inflammatory. The possibility of lymphoma or metastatic disease cannot be absolutely excluded. 3. Moderate size pericardial effusion. There are also trace bilateral effusions with minimal bibasilar atelectasis or developing pneumonia. Individualized dose optimization techniques were used for this CT. at 0957 Reported and signed by: Wayne Gonzales MD Electronically Signed: Wayne Gonzales MD at 9:56 EDT Tel , Service support , EKG Initial EKG: Attestation: I personally reviewed and interpreted this EKG as follows: Interpretation: Sinus Rhythm (94) and No Acute Injury Pattern Prior EKG tracings: available for review Prior: Unchanged (03/06/2018) Follow-up EKG: Attestation: I personally reviewed and interpreted this EKG as follows: Interpretation: No Acute Injury Pattern and Atrial Fibrillation (141) Discharge Plan Triage Chief Complaint: Chest Pain ED Provider: Atul Montgomery Dx/Rx/DC Orders Clinical Impression: Chest pain, Paroxysmal atrial fibrillation Prescriptions: New metoprolol tartrate 25 mg tablet 25 mg PO BID Qty: 30 RF: 0 No Action omega-3 fatty acids 1,000 MG capsule 800 mg PO DAILY RF: 0 aspirin 81 MG tablet 81 mg PO DAILY@0800 RF: 0 garlic 500 MG capsule 500 mg PO DAILY RF: 0 metoprolol tartrate 50 MG tablet 25 mg PO DAILY RF: 0 cholecalciferol (vitamin D3) [Vitamin D3] 1,000 UNIT tablet 2,000 unit PO DAILY RF: 0 multivitamin [Multiple Vitamins] 1 EACH tablet 1 ea PO DAILY RF: 0 sertraline 100 MG tablet 100 mg PO DAILY RF: 0 meloxicam 15 MG tablet 15 mg PO DAILY RF: 0 Primary Care Provider: Flora Sarmiento Referrals: Flora Sarmiento MD [Primary Care Provider] - 5-7 Days Yanet Christensen MD [STAFF PHYSICIAN] - 3-5 Days Disposition Disposition: Home, Self Care
--- NOTE | 2021-08-08 08:14 | EKG12_ITS ---
Test Reason : Blood Pressure : / mmHG Vent. Rate : 081 BPM Atrial Rate : 073 BPM P-R Int : 136 ms QRS Dur : 088 ms QT Int : 392 ms P-R-T Axes : 025 018 032 degrees QTc Int : 455 ms Sinus rhythm with frequent Premature ventricular complexes Otherwise normal ECG Confirmed by RAY NELSON, OBDULIO ([id number]), primer expeditor and drier CECELIA MORIN ([id number]) on 08/11/2021 9:41:38 AM Referred By: REBECCA Confirmed By:OBDULIO BELL MD
[2021-08-08] MEDS: Aspirin 81 MG TAB.CHEW 324 MG PO (08:23)
--- NOTE | 2021-08-08 08:23 | RAD_ITS ---
EXAM: XR CHEST, 1 VIEW : 1965 CLINICAL INDICATION: chest pain TECHNIQUE: Frontal view of the chest. This report was created using [employer] report generation technology. COMPARISON: None. FINDINGS: LUNGS AND PLEURAL SPACES: Unremarkable. No consolidation or edema. No pneumothorax. No effusion. HEART: Unremarkable. Cardiac silhouette not enlarged. MEDIASTINUM: Central airways and mediastinal contour are unremarkable. BONES/JOINTS: Unremarkable. SOFT TISSUES: Unremarkable. RAD/Chest 1 View (Portable) IMPRESSION: No radiographic evidence of acute cardiopulmonary disease. at 0905 Reported and signed by: Wayne Gonzales MD Electronically Signed: Wayne Gonzales MD at 9:04 EDT Tel , Service support ,
[2021-08-08 08:39] LABS: Absolute Lymphocyte Count 1.26 X10^3/uL (0.83-4.51); Absolute Neutrophil Count 7.3 X10^3/uL (2.0-7.7); Basophil# 0.05 X10^3/uL; Basophil% 0.5 % (0-1); Eosinophil# 0.14 X10^3/uL; Eosinophils% 1.5 % (0-5); Lymphocyte # 1.26 X10^3/ul (0.83-4.51); Lymphocyte % 13.5 % (19-41); Mean Corp Hgb Conc 32.4 g/dL (32-36); Mean Corpuscular Hgb 30.6 pg (27.0-32.0); Mean Corpuscular Volume 94.4 fL (80-94); Mean Platelet Vol. 12.1 fl (6.2-12.0); Monocyte# 0.52 X10^3/uL; Monocyte% 5.6 % (0-10); NRBC Flagged by Analyzer 0 % (0-5); Neutrophil # 7.29 X10^3/uL (2.7-7.7); Neutrophil % 78.5 % (47-70); Platelet Count 237 K/mm3 (150-450); RBC Distribution Width SD 48.4 fl (35.1-43.9); White Blood Count 9.3 K/mm3 (4.4-11.0)
--- NOTE | 2021-08-08 08:39 | ED.RN ---
PROVIDER AWARE OF RHYTHM CHANGES.
[2021-08-08 08:47] LABS: Anion Gap 8 (5-15); BUN 15 mg/dL (7-18); BUN/Creat Ratio 14.3 RATIO (10-20); Calcium,Total 8.6 mg/dL (8.5-10.1); Chloride 106 mmol/L (98-107); Creatinine, Serum 1.05 mg/dL (0.70-1.30); EST Glomerular Filtration Rate 77 mL/min (>60); Est Glom Filt Rate - Afr Amer 93 mL/min (>60); Estimated Creatinine Clearance 84.17 ml/min; Glucose 173 mg/dL (74-106); Potassium 3.6 mmol/L (3.5-5.1); Sodium Level 139 mmol/L (136-145); Troponin-I HS 8 pg/mL (3.0-78.0)
[2021-08-08] MEDS: dilTIAZem 25 MG/5 ML Vial IV BOLUS (08:57)
[2021-08-08 08:59] LABS: D-Dimer Quantitative (DVT/PE) 2.89 FEU/ug/m (0.27-0.49)
--- NOTE | 2021-08-08 09:02 | CT_ITS ---
EXAM: CT ANGIOGRAPHY CHEST WITHOUT AND WITH INTRAVENOUS CONTRAST : 1965 CLINICAL INDICATION: Elevated D-dimer TECHNIQUE: Helically acquired angiography images were obtained of the chest without and with intravenous contrast. This CT exam was performed using one or more of the following dose reduction techniques: automated exposure control, adjustment of the mA and/or kV according to patient size, and/or use of iterative reconstruction technique. This report was created using [employer] report generation technology. MIP reconstructed images were created and reviewed. CONTRAST: IV 100mL [id number] COMPARISON: None. FINDINGS: PULMONARY ARTERIES: Unremarkable. Normal in caliber. No evidence of pulmonary embolism. AORTA: Unremarkable. Normal in caliber. No evidence of dissection. GREAT VESSELS OF AORTIC ARCH: Unremarkable. Normal in caliber. No evidence of dissection. LUNGS AND PLEURAL SPACES: There are small bilateral pleural effusions. There is minimal bibasilar atelectasis or developing pneumonia. No mass. HEART: There is a pericardial effusion that measures 1.8 cm. No signs of right heart strain, ratio of right ventricle to left ventricle measures less than 1. MEDIASTINUM: Unremarkable. No mediastinal or hilar adenopathy. Esophagus is unremarkable. No hiatal hernia. THYROID: Unremarkable. No thyroid lesions. BONES/JOINTS: Unremarkable. No suspicious lytic or blastic abnormality. LYMPH NODES: There are enlarged lymph nodes with the largest in the left paratracheal region measuring 2.[address]/CTA Chest W/WO Contrast IMPRESSION: 1. No evidence of pulmonary embolus. 2. Enlarged mediastinal lymph nodes which may be reactive or inflammatory. The possibility of lymphoma or metastatic disease cannot be absolutely excluded. 3. Moderate size pericardial effusion. There are also trace bilateral effusions with minimal bibasilar atelectasis or developing pneumonia. Individualized dose optimization techniques were used for this CT. at 0957 Reported and signed by: Wayne Gonzales MD Electronically Signed: Wayne Gonzales MD at 9:56 EDT Tel , Service support ,
[2021-08-08 11:27] LABS: Troponin-I HS 8 pg/mL (3.0-78.0)
--- NOTE | 2021-08-08 12:21 | EKG12_ITS ---
Test Reason : Blood Pressure : / mmHG Vent. Rate : 094 BPM Atrial Rate : 094 BPM P-R Int : 134 ms QRS Dur : 084 ms QT Int : 358 ms P-R-T Axes : 053 032 048 degrees QTc Int : 447 ms Normal sinus rhythm Normal ECG Confirmed by RAY NELSON, OBDULIO ([id number]), school photograph editor CECELIA MORIN ([id number]) on 08/11/2021 9:42:32 AM Referred By: REBECCA Confirmed By:OBDULIO BELL MD
--- NOTE | 2021-08-08 12:21 | EKG12_ITS ---
Test Reason : Blood Pressure : / mmHG Vent. Rate : 141 BPM Atrial Rate : 153 BPM P-R Int : 000 ms QRS Dur : 082 ms QT Int : 306 ms P-R-T Axes : 000 024 043 degrees QTc Int : 468 ms Atrial fibrillation Abnormal ECG Confirmed by RAY NELSON, OBDULIO ([id number]), commissioning editor CECELIA MORIN ([id number]) on 08/11/2021 9:42:05 AM Referred By: REBCECA Confirmed By:OBDULIO BELL MD
== END 2021-08-08 13:13 | disposition home or self-care (01) ==
PROVIDERS: Emergency Provider Emergency Medicine; PCP Family Medicine
DX: I48.0 Paroxysmal atrial fibrillation (principal); R07.89 Other chest pain; R06.02 Shortness of breath; I49.3 Ventricular premature depolarization; R79.89 Other specified abnormal findings of blood chemistry; I31.3 Pericardial effusion (noninflammatory); J90 Pleural effusion, not elsewhere classified; I10 Essential (primary) hypertension; F32.9 Major depressive disorder, single episode, unspecified; F41.9 Anxiety disorder, unspecified; Z85.47 Personal history of malignant neoplasm of testis; Z79.82 Long term (current) use of aspirin; Z79.899 Other long term (current) drug therapy; Z87.891 Personal history of nicotine dependence
CPT/HCPCS: 71045; 71275; 80048; 84484; 85025; 85379; 87426; 93005; 96374; 99284; Q9967; A4216

== ENCOUNTER 2021-08-10 13:28 | Inpatient (IN) | payer OTHER, SELFPAY ==
[2021-08-10] VITALS (10 sets, daily range): BP systolic 112–133; BP diastolic 66–90; PULSE 42–79; RESP 14–20; TEMP 36.1–36.7; O2SAT 94–99; BMI 29.5
--- NOTE | 2021-08-10 14:02 | EKG12_ITS ---
Test Reason : REPEAT CP Blood Pressure : / mmHG Vent. Rate : 123 BPM Atrial Rate : 147 BPM P-R Int : 000 ms QRS Dur : 086 ms QT Int : 294 ms P-R-T Axes : 058 025 038 degrees QTc Int : 420 ms PAF Otherwise normal ECG Confirmed by RAY NELSON, OBDULIO ([id number]), editor in chief newspaper CECELIA MORIN ([id number]) on 08/12/2021 9:06:11 AM Referred By: Confirmed By:OBDULIO BELL MD
--- NOTE | 2021-08-10 14:03 | EX.ED.DYSGE1 ---
HPI <Dr. Maribell Renee MD - Last Filed: 08/10/21 17:15> History of Present Illness Chief Complaint: Chest Pain Informant: patient and spouse/S.O. Onset/Context/Timing Onset: Days (4 days) Context: Gradual Onset Timing: Waxes and wanes Current Severity: Mild Maximum Severity: Moderate Narrative Narrative: Patient presents secondary to right lower chest and right upper quadrant abdominal pain. Symptoms started 3 days ago. Patient was seen in the ER 2 days ago. While here he went into A. fib RVR and converted after a dose of Cardizem. He had 2 - troponins and a CTA that showed no evidence of PE. Patient was discussed with cardiology and placed on metoprolol. His Covid test at that time was negative. Patient states they called primary care doctor as well as crawler dragline operator for close follow-up. He reported cannot be seen by cardiology until October. PCP told if he still having symptoms he should come back to the ER. Patient does state the pain is gone down into the right upper quadrant more. He denies nausea or vomiting. Pain does not change with eating. He does seem to note worsened pain with exertion and better with rest. [facility] <Dr. Maribell Renee MD - Last Filed: 08/10/21 17:15> [facility] Medical History (Updated 08/16/21 @ 00:00 by Background Dasivaon) Anxiety Depression Hypertension Testicular cancer Home Medications aspirin 81 mg PO DAILY@0800 09/07/16 [History Last Taken 08/10/21 08:00] cholecalciferol (vitamin D3) [Vitamin D] 2,000 unit PO DAILY 09/07/16 [History Last Taken 08/10/21 08:00] garlic 500 mg PO DAILY 09/07/16 [History Last Taken Unknown] omega-3 fatty acids 800 mg PO DAILY 09/07/16 [History Last Taken 08/10/21 08:00] multivitamin [Multiple Vitamins] 1 ea PO DAILY 03/06/18 [History Last Taken 08/10/21 08:00] sertraline 100 mg PO DAILY 05/24/18 [History Last Taken 08/10/21 08:00] metoprolol tartrate 25 mg PO BID 08/11/21 [History Last Taken 08/10/21 08:00] Allergy/AdvReac Type Severity Reaction Status Date / Time No Known Allergies Allergy Verified 08/10/21 13:32 Family History (Updated 08/11/21 @ 15:[address] Karan Da Silva MD) Other Cancer Heart disease Surgical History History of hip surgery History of orchiectomy Social History Smoking Status: Former smoker ROS <Dr. Maribell Renee MD - Last Filed: 08/10/21 17:15> ROS ED Constitutional Constitutional ED: Denies chills or fever(s) Eyes Eyes: Denies change in vision ENT ENT ED: Denies sore throat Cardiovascular Cardiovascular: Reports chest pain Respiratory/Chest Respiratory/Chest: Reports dyspnea; Denies cough Gastrointestinal Gastrointestinal: Reports abdominal pain; Denies diarrhea, nausea or vomiting Genitourinary Genitourinary ED: Denies dysuria Musculoskeletal Musculoskeletal: Denies back pain Integumentary Denies rash Neurologic Neurologic: Denies headache(s) or weakness Allergic/Immunologic Allergic/Immunologic ED: Denies urticaria EXAM <Dr. Maribell Renee MD - Last Filed: 08/10/21 17:15> Physical Exam Const Vital Signs: 08/10/21 13:28 08/10/21 13:49 08/10/21 14:28 Temperature 98.0 F Temperature Source Temporal Pulse Rate 42 L 79 Respiratory Rate 16 18 Respiratory Effort Normal Non-Labored Blood Pressure 133/90 H 117/85 H Blood Pressure Mean 104 95 Pulse Ox 97 94 Oxygen Delivery Method Room Air Room Air Oxygen Flow Rate (L/min) 08/10/21 15:00 08/10/21 16:00 08/10/21 17:19 Temperature Temperature Source Pulse Rate 71 63 71 Respiratory Rate 18 20 H 18 Respiratory Effort Blood Pressure 117/67 113/66 126/76 H Blood Pressure Mean 83 81 92 Pulse Ox 94 94 95 Oxygen Delivery Method Room Air Room Air Room Air Oxygen Flow Rate (L/min) 08/10/21 18:19 08/10/21 19:00 08/10/21 20:52 Temperature Temperature Source Pulse Rate 59 L 75 78 Respiratory Rate 14 19 H 16 Respiratory Effort Blood Pressure 119/66 129/75 H 128/76 H Blood Pressure Mean 83 93 93 Pulse Ox 99 94 98 Oxygen Delivery Method Room Air Room Air Room Air Oxygen Flow Rate (L/min) 08/10/21 22:07 08/10/21 23:34 08/11/21 02:01 Temperature 96.9 F L Temperature Source Temporal Pulse Rate 75 71 88 Respiratory Rate 20 H 20 H 20 H Respiratory Effort Blood Pressure 126/75 H 112/77 114/67 Blood Pressure Mean 92 88 82 Pulse Ox 95 96 92 Oxygen Delivery Method Room Air Room Air Room Air Oxygen Flow Rate (L/min) 08/11/21 04:00 08/11/21 05:00 08/11/21 06:46 Temperature Temperature Source Pulse Rate 78 80 121 H Respiratory Rate 21 H 21 H 19 H Respiratory Effort Blood Pressure 121/81 H 111/71 99/71 Blood Pressure Mean 94 84 80 Pulse Ox 93 92 94 Oxygen Delivery Method Room Air Oxygen Flow Rate (L/min) 08/11/21 06:51 08/11/21 06:56 08/11/21 07:20 Temperature Temperature Source Pulse Rate 74 136 H Respiratory Rate 13 22 H Respiratory Effort Blood Pressure 99/71 117/71 Blood Pressure Mean 80 86 Pulse Ox 93 95 91 Oxygen Delivery Method Nasal Cannula Nasal Cannula Oxygen Flow Rate (L/min) 2 2 08/11/21 08:02 Temperature 97.7 F L Temperature Source Temporal Pulse Rate Respiratory Rate Respiratory Effort Blood Pressure Blood Pressure Mean Pulse Ox Oxygen Delivery Method Oxygen Flow Rate (L/min) Positive well nourished and well developed General Appearance ED: well developed Eyes PERRL and EOMs intact bilaterally Neck supple Chest Wall inspection of chest normal and palpation of chest normal Resp normal respiratory effort Auscultation: diminished lung sounds Cardio regular rate and regular rhythm GI Auscultation: hypoactive bowel sounds Palpation: soft and tender RUQ Extremity normal to inspection Neuro oriented x3 Sensorium / Orientation: alert Psych mental status grossly normal Skin no rashes or lesions noted <Dr. Cm Patricia, DO - Last Filed: 08/10/21 23:48> Physical Exam Const Vital Signs: 08/10/21 13:28 08/10/21 13:49 08/10/21 14:28 Temperature 98.0 F Temperature Source Temporal Pulse Rate 42 L 79 Respiratory Rate 16 18 Respiratory Effort Normal Non-Labored Blood Pressure 133/90 H 117/85 H Blood Pressure Mean 104 95 Pulse Ox 97 94 Oxygen Delivery Method Room Air Room Air Oxygen Flow Rate (L/min) 08/10/21 15:00 08/10/21 16:00 08/10/21 17:19 Temperature Temperature Source Pulse Rate 71 63 71 Respiratory Rate 18 20 H 18 Respiratory Effort Blood Pressure 117/67 113/66 126/76 H Blood Pressure Mean 83 81 92 Pulse Ox 94 94 95 Oxygen Delivery Method Room Air Room Air Room Air Oxygen Flow Rate (L/min) 08/10/21 18:19 08/10/21 19:00 08/10/21 20:52 Temperature Temperature Source Pulse Rate 59 L 75 78 Respiratory Rate 14 19 H 16 Respiratory Effort Blood Pressure 119/66 129/75 H 128/76 H Blood Pressure Mean 83 93 93 Pulse Ox 99 94 98 Oxygen Delivery Method Room Air Room Air Room Air Oxygen Flow Rate (L/min) 08/10/21 22:07 08/10/21 23:34 08/11/21 02:01 Temperature 96.9 F L Temperature Source Temporal Pulse Rate 75 71 88 Respiratory Rate 20 H 20 H 20 H Respiratory Effort Blood Pressure 126/75 H 112/77 114/67 Blood Pressure Mean 92 88 82 Pulse Ox 95 96 92 Oxygen Delivery Method Room Air Room Air Room Air Oxygen Flow Rate (L/min) 08/11/21 04:00 08/11/21 05:00 08/11/21 06:46 Temperature Temperature Source Pulse Rate 78 80 121 H Respiratory Rate 21 H 21 H 19 H Respiratory Effort Blood Pressure 121/81 H 111/71 99/71 Blood Pressure Mean 94 84 80 Pulse Ox 93 92 94 Oxygen Delivery Method Room Air Oxygen Flow Rate (L/min) 08/11/21 06:51 08/11/21 06:56 08/11/21 07:20 Temperature Temperature Source Pulse Rate 74 136 H Respiratory Rate 13 22 H Respiratory Effort Blood Pressure 99/71 117/71 Blood Pressure Mean 80 86 Pulse Ox 93 95 91 Oxygen Delivery Method Nasal Cannula Nasal Cannula Oxygen Flow Rate (L/min) 2 2 08/11/21 08:02 Temperature 97.7 F L Temperature Source Temporal Pulse Rate Respiratory Rate Respiratory Effort Blood Pressure Blood Pressure Mean Pulse Ox Oxygen Delivery Method Oxygen Flow Rate (L/min) <Dr. Sukhdev Stewart MD - Last Filed: 08/18/21 17:20> Physical Exam Const Vital Signs: 08/10/21 13:28 08/10/21 13:49 10/11/21 14:28 Temperature 98.0 F Temperature Source Temporal Pulse Rate 42 L 79 Respiratory Rate 16 18 Respiratory Effort Normal Non-Labored Blood Pressure 133/90 H 117/85 H Blood Pressure Mean 104 95 Pulse Ox 97 94 Oxygen Delivery Method Room Air Room Air Oxygen Flow Rate (L/min) 08/10/21 15:00 08/10/21 16:00 08/10/21 17:19 Temperature Temperature Source Pulse Rate 71 63 71 Respiratory Rate 18 20 H 18 Respiratory Effort Blood Pressure 117/67 113/66 126/76 H Blood Pressure Mean 83 81 92 Pulse Ox 94 94 95 Oxygen Delivery Method Room Air Room Air Room Air Oxygen Flow Rate (L/min) 08/10/21 18:19 08/10/21 19:00 08/10/21 20:52 Temperature Temperature Source Pulse Rate 59 L 75 78 Respiratory Rate 14 19 H 16 Respiratory Effort Blood Pressure 119/66 129/75 H 128/76 H Blood Pressure Mean 83 93 93 Pulse Ox 99 94 98 Oxygen Delivery Method Room Air Room Air Room Air Oxygen Flow Rate (L/min) 08/10/21 22:07 08/10/21 23:34 08/11/21 02:01 Temperature 96.9 F L Temperature Source Temporal Pulse Rate 75 71 88 Respiratory Rate 20 H 20 H 20 H Respiratory Effort Blood Pressure 126/75 H 112/77 114/67 Blood Pressure Mean 92 88 82 Pulse Ox 95 96 92 Oxygen Delivery Method Room Air Room Air Room Air Oxygen Flow Rate (L/min) 08/11/21 04:00 08/11/21 05:00 08/11/21 06:46 Temperature Temperature Source Pulse Rate 78 80 121 H Respiratory Rate 21 H 21 H 19 H Respiratory Effort Blood Pressure 121/81 H 111/71 99/71 Blood Pressure Mean 94 84 80 Pulse Ox 93 92 94 Oxygen Delivery Method Room Air Oxygen Flow Rate (L/min) 08/11/21 06:51 08/11/21 06:56 08/11/21 07:20 Temperature Temperature Source Pulse Rate 74 136 H Respiratory Rate 13 22 H Respiratory Effort Blood Pressure 99/71 117/71 Blood Pressure Mean 80 86 Pulse Ox 93 95 91 Oxygen Delivery Method Nasal Cannula Nasal Cannula Oxygen Flow Rate (L/min) 2 2 08/11/21 08:02 Temperature 97.7 F L Temperature Source Temporal Pulse Rate Respiratory Rate Respiratory Effort Blood Pressure Blood Pressure Mean Pulse Ox Oxygen Delivery Method Oxygen Flow Rate (L/min) <Dr. Rose Marie Licona MD - Last Filed: 08/11/21 08:55> Physical Exam Const Vital Signs: 08/10/21 13:28 08/10/21 13:49 08/10/21 14:28 Temperature 98.0 F Temperature Source Temporal Pulse Rate 42 L 79 Respiratory Rate 16 18 Respiratory Effort Normal Non-Labored Blood Pressure 133/90 H 117/85 H Blood Pressure Mean 104 95 Pulse Ox 97 94 Oxygen Delivery Method Room Air Room Air Oxygen Flow Rate (L/min) 08/10/21 15:00 08/10/21 16:00 08/10/21 17:19 Temperature Temperature Source Pulse Rate 71 63 71 Respiratory Rate 18 20 H 18 Respiratory Effort Blood Pressure 117/67 113/66 126/76 H Blood Pressure Mean 83 81 92 Pulse Ox 94 94 95 Oxygen Delivery Method Room Air Room Air Room Air Oxygen Flow Rate (L/min) 08/10/21 18:19 08/10/21 19:00 08/10/21 20:52 Temperature Temperature Source Pulse Rate 59 L 75 78 Respiratory Rate 14 19 H 16 Respiratory Effort Blood Pressure 119/66 129/75 H 128/76 H Blood Pressure Mean 83 93 93 Pulse Ox 99 94 98 Oxygen Delivery Method Room Air Room Air Room Air Oxygen Flow Rate (L/min) 08/10/21 22:07 08/10/21 23:34 08/11/21 02:01 Temperature 96.9 F L Temperature Source Temporal Pulse Rate 75 71 88 Respiratory Rate 20 H 20 H 20 H Respiratory Effort Blood Pressure 126/75 H 112/77 114/67 Blood Pressure Mean 92 88 82 Pulse Ox 95 96 92 Oxygen Delivery Method Room Air Room Air Room Air Oxygen Flow Rate (L/min) 08/11/21 04:00 08/11/21 05:00 08/11/21 06:46 Temperature Temperature Source Pulse Rate 78 80 121 H Respiratory Rate 21 H 21 H 19 H Respiratory Effort Blood Pressure 121/81 H 111/71 99/71 Blood Pressure Mean 94 84 80 Pulse Ox 93 92 94 Oxygen Delivery Method Room Air Oxygen Flow Rate (L/min) 08/11/21 06:51 08/11/21 06:56 08/11/21 07:20 Temperature Temperature Source Pulse Rate 74 136 H Respiratory Rate 13 22 H Respiratory Effort Blood Pressure 99/71 117/71 Blood Pressure Mean 80 86 Pulse Ox 93 95 91 Oxygen Delivery Method Nasal Cannula Nasal Cannula Oxygen Flow Rate (L/min) 2 2 08/11/21 08:02 Temperature 97.7 F L Temperature Source Temporal Pulse Rate Respiratory Rate Respiratory Effort Blood Pressure Blood Pressure Mean Pulse Ox Oxygen Delivery Method Oxygen Flow Rate (L/min) MDM <Dr. Maribell Renee MD - Last Filed: 08/10/21 17:15> [facility] MDM Narrative Medical decision making narrative: Patient's work-up from 2 days ago was reviewed. Patient is given aspirin. EKG, lab work, chest x-ray obtained. Lab Data Attestation: I reviewed the patient's lab results. Labs: Laboratory Results - last 24 hr 08/10/21 08/10/21 08/10/21 13:42 13:42 13:42 WBC 10.0 RBC 3.62 L Hgb 10.7 L Hct 33.7 L MCV 93.1 MCH 29.6 MCHC 31.8 L RDW Std Deviation 47.7 H RDW Coeff of Jennifer 14.1 Plt Count 262 MPV 12.4 H Immature Gran % (Auto) 0.600 Neut % (Auto) 77.5 H Lymph % (Auto) 12.5 L Barren % (Auto) 7.0 Eos % (Auto) 2.0 Baso % (Auto) 0.4 Absolute Neuts (auto) 7.8 H Absolute Lymphs (auto) 1.25 Nucleated RBC % 0 ESR 67 H Sodium 140 Potassium 4.0 Chloride 107 Carbon Dioxide 27.0 Anion Gap 6 BUN 13 Creatinine 0.84 Estim Creat Clear Calc 105.21 Est GFR (MDRD) Af Amer 121 Est GFR (MDRD) Non-Af 100 BUN/Creatinine Ratio 15.5 Glucose 96 Calcium 8.5 Total Bilirubin 0.60 Direct Bilirubin 0.23 AST 15 ALT 37 Alkaline Phosphatase 105 Troponin I High Sens 7 C-React Prot Ext Range Total Protein 7.4 Albumin 3.0 L Globulin 4.4 H Lipase 111 08/10/21 13:42 WBC RBC Hgb Hct MCV MCH MCHC RDW Std Deviation RDW Coeff of Jennifer Plt Count MPV Immature Gran % (Auto) Neut % (Auto) Lymph % (Auto) Barren % (Auto) Eos % (Auto) Baso % (Auto) Absolute Neuts (auto) Absolute Lymphs (auto) Nucleated RBC % ESR Sodium Potassium Chloride Carbon Dioxide Anion Gap BUN Creatinine Estim Creat Clear Calc Est GFR (MDRD) Af Amer Est GFR (MDRD) Non-Af BUN/Creatinine Ratio Glucose Calcium Total Bilirubin Direct Bilirubin AST ALT Alkaline Phosphatase Troponin I High Sens C-React Prot Ext Range 94.90 H Total Protein Albumin Globulin Lipase Radiography Chest X-Ray - ED: 1 View, Read by ED Physician and Cardiomegaly Diagnostic Testing: Clinical Impression(s) from Imaging Studies Chest X-Ray 08/10/21 14:10 IMPRESSION: Cardiomegaly and mild degree of vascular congestion. Electronically Signed: Carson Rodriguez MD at 14:40 EDT , Service support , Echocardiogram 08/10/21 15:28 Interpretation Summary Normal LV size. Left ventricular systolic function is normal. The estimated ejection fraction is 55 %. Stage 1 diastolic dysfunction. Moderate pericardial effusion. Early tamponade cannot be excluded. Efffusion measures 1.8 Ordering Physician: Maribell Renee Referring Physician: Flora Sarmiento Performed By: Liss Correa, MONIQUE, RVT Abdomen/Pelvis CT 08/11/21 06:41 IMPRESSION: Small bilateral pleural effusions with bibasilar atelectasis. Moderate sized pericardial effusion. Cholelithiasis. Bilateral renal cysts. Electronically Signed: Carson Rodriguez MD at 8:33 EDT , Service support , EKG Initial EKG: Attestation: I personally reviewed and interpreted this EKG as follows: Interpretation: Sinus Rhythm (Sinus at 77 with no acute ischemia.) Treatment and Re-Evaluation Comments:: Patient's lab work today is unremarkable. Troponin remains negative. LFTs and lipase are normal. Chest x-ray reveals cardiomegaly similar to prior study. I did review the patient's CTA from 2 days ago and a moderate pericardial effusion was noted. I spoke with our crawler dragline operator who felt the patient should have an echocardiogram to see the true value of this pericardial effusion. He also requested sed rate and CRP be added. With those values are elevated. Echocardiogram reveals a moderate pericardial effusion with diastolic compression of the right atrium concerning for early tamponade. Aviation Survival Technician believes that the patient likely went into A. fib 2 days ago because of these pericardial effusion. CTA at that time also revealed enlarged mediastinal lymph nodes which may be reactive or inflammatory. Possibility of lymphoma or metastatic disease is not entirely excluded. In light of the entire picture crawler dragline operator here does feel patient should be transferred to a facility with CT surgery availability. We are working on transfer facility at this time. <Dr. Cm Patricia, DO - Last Filed: 08/10/21 23:48> [facility] MDM Narrative Medical decision making narrative: Patient signed out to me for monitoring and to try to find bed placement for him given his pericardial effusion and concern for tamponade. Patient has remained medically stable. He is alert and awake. He was able to eat a meal and did not have any nausea or vomiting. I spoke with main campus and specifically states the cardiothoracic surgeon Dr. Aguilar who did accept admission however we are currently awaiting a bed assignment. Patient complained of pain at about 1145 and I went to reevaluate him that he states is the same abdominal pain that he has had and it has not changed. His abdominal exam is benign. I wanted to give him something for pain that would not drop his blood pressures I did give him a 25 mcg of fentanyl. I will have nursing recall he waits to see what his bed status is. He will be signed out to incoming ED physician for monitoring. Lab Data Attestation: I reviewed the patient's lab results. Labs: Laboratory Results - last 24 hr 08/10/21 08/10/21 08/10/21 13:42 13:42 13:42 WBC 10.0 RBC 3.62 L Hgb 10.7 L Hct 33.7 L MCV 93.1 MCH 29.6 MCHC 31.8 L RDW Std Deviation 47.7 H RDW Coeff of Jennifer 14.1 Plt Count 262 MPV 12.4 H Immature Gran % (Auto) 0.600 Neut % (Auto) 77.5 H Lymph % (Auto) 12.5 L Barren % (Auto) 7.0 Eos % (Auto) 2.0 Baso % (Auto) 0.4 Absolute Neuts (auto) 7.8 H Absolute Lymphs (auto) 1.25 Nucleated RBC % 0 ESR 67 H Sodium 140 Potassium 4.0 Chloride 107 Carbon Dioxide 27.0 Anion Gap 6 BUN 13 Creatinine 0.84 Estim Creat Clear Calc 105.21 Est GFR (MDRD) Af Amer 121 Est GFR (MDRD) Non-Af 100 BUN/Creatinine Ratio 15.5 Glucose 96 Calcium 8.5 Total Bilirubin 0.60 Direct Bilirubin 0.23 AST 15 ALT 37 Alkaline Phosphatase 105 Troponin I High Sens 7 C-React Prot Ext Range Total Protein 7.4 Albumin 3.0 L Globulin 4.4 H Lipase 111 08/10/21 13:42 WBC RBC Hgb Hct MCV MCH MCHC RDW Std Deviation RDW Coeff of Jennifer Plt Count MPV Immature Gran % (Auto) Neut % (Auto) Lymph % (Auto) Barren % (Auto) Eos % (Auto) Baso % (Auto) Absolute Neuts (auto) Absolute Lymphs (auto) Nucleated RBC % ESR Sodium Potassium Chloride Carbon Dioxide Anion Gap BUN Creatinine Estim Creat Clear Calc Est GFR (MDRD) Af Amer Est GFR (MDRD) Non-Af BUN/Creatinine Ratio Glucose Calcium Total Bilirubin Direct Bilirubin AST ALT Alkaline Phosphatase Troponin I High Sens C-React Prot Ext Range 94.90 H Total Protein Albumin Globulin Lipase Radiography Diagnostic Testing: Clinical Impression(s) from Imaging Studies Chest X-Ray 08/10/21 14:10 IMPRESSION: Cardiomegaly and mild degree of vascular congestion. Electronically Signed: Carson Rodriguez MD at 14:40 EDT , Service support , Echocardiogram 08/10/21 15:28 Interpretation Summary Normal LV size. Left ventricular systolic function is normal. The estimated ejection fraction is 55 %. Stage 1 diastolic dysfunction. Moderate pericardial effusion. Early tamponade cannot be excluded. Efffusion measures 1.8 Ordering Physician: Maribell Renee Referring Physician: Flora Sarmiento Performed By: Liss Correa, CYDNEYCS, RVT Abdomen/Pelvis CT 08/11/21 06:41 IMPRESSION: Small bilateral pleural effusions with bibasilar atelectasis. Moderate sized pericardial effusion. Cholelithiasis. Bilateral renal cysts. Electronically Signed: Carson Rodriguez MD at 8:33 EDT , Service support , <Dr. Sukhdev Stewart MD - Last Filed: 08/18/21 17:20> [facility] Narrative Medical decision making narrative: Patient has been comfortable and resting all night. This morning he got up and was complaining of pain again. We have ordered an EKG that will be looked at. It is being done now. I went to see the patient. I reviewed his 2 visits and results. He is having cramping uncomfortable pain really across the upper abdomen. He states he has had it in his chest the other day but he has had more problems in the upper abdomen. He does have tenderness of there but it is mild. No rebound or guarding. No mass. It is not isolated to the right upper quadrant. He has a little tenderness toward the right lower but it is quite minimal. He does have pericardial effusion but I am not sure if this is the source of the pain that he is having right now. I will get him meds for pain. I have added a CAT scan of his abdomen to look further while the patient is here. [facility] yet. I am not giving IV contrast as he just had this already. I think with his age and body mass a CT without contrast will be appropriate. Lab Data Labs: Laboratory Results - last 24 hr 08/10/21 08/10/21 08/10/21 13:42 13:42 13:42 WBC 10.0 RBC 3.62 L Hgb 10.7 L Hct 33.7 L MCV 93.1 MCH 29.6 MCHC 31.8 L RDW Std Deviation 47.7 H RDW Coeff of Jennifer 14.1 Plt Count 262 MPV 12.4 H Immature Gran % (Auto) 0.600 Neut % (Auto) 77.5 H Lymph % (Auto) 12.5 L Barren % (Auto) 7.0 Eos % (Auto) 2.0 Baso % (Auto) 0.4 Absolute Neuts (auto) 7.8 H Absolute Lymphs (auto) 1.25 Nucleated RBC % 0 ESR 67 H Sodium 140 Potassium 4.0 Chloride 107 Carbon Dioxide 27.0 Anion Gap 6 BUN 13 Creatinine 0.84 Estim Creat Clear Calc 105.21 Est GFR (MDRD) Af Amer 121 Est GFR (MDRD) Non-Af 100 BUN/Creatinine Ratio 15.5 Glucose 96 Calcium 8.5 Total Bilirubin 0.60 Direct Bilirubin 0.23 AST 15 ALT 37 Alkaline Phosphatase 105 Troponin I High Sens 7 C-React Prot Ext Range Total Protein 7.4 Albumin 3.0 L Globulin 4.4 H Lipase 111 08/10/21 13:42 WBC RBC Hgb Hct MCV MCH MCHC RDW Std Deviation RDW Coeff of Jennifer Plt Count MPV Immature Gran % (Auto) Neut % (Auto) Lymph % (Auto) Barren % (Auto) Eos % (Auto) Baso % (Auto) Absolute Neuts (auto) Absolute Lymphs (auto) Nucleated RBC % ESR Sodium Potassium Chloride Carbon Dioxide Anion Gap BUN Creatinine Estim Creat Clear Calc Est GFR (MDRD) Af Amer Est GFR (MDRD) Non-Af BUN/Creatinine Ratio Glucose Calcium Total Bilirubin Direct Bilirubin AST ALT Alkaline Phosphatase Troponin I High Sens C-React Prot Ext Range 94.90 H Total Protein Albumin Globulin Lipase Radiography Diagnostic Testing: Clinical Impression(s) from Imaging Studies Chest X-Ray 08/10/21 14:10 IMPRESSION: Cardiomegaly and mild degree of vascular congestion. Electronically Signed: Carson Rodriguez MD at 14:40 EDT , Service support , Echocardiogram 08/10/21 15:28 Interpretation Summary Normal LV size. Left ventricular systolic function is normal. The estimated ejection fraction is 55 %. Stage 1 diastolic dysfunction. Moderate pericardial effusion. Early tamponade cannot be excluded. Efffusion measures 1.8 Ordering Physician: Maribell Renee Referring Physician: Flora Sarmiento Performed By: Liss Correa, MONIQUE, RVT Abdomen/Pelvis CT 08/11/21 06:41 IMPRESSION: Small bilateral pleural effusions with bibasilar atelectasis. Moderate sized pericardial effusion. Cholelithiasis. Bilateral renal cysts. Electronically Signed: Carson Rodriguez MD at 8:33 EDT , Service support , <Dr. Rose Marie Licona MD - Last Filed: 08/11/21 08:55> [facility] MDM Narrative Medical decision making narrative: Patient was signed out to me awaiting bed placement at . On further discussion with they do not have any timeframe where he may get a bed. Discussed with hospitalist for admission awaiting transfer to . Lab Data Labs: Laboratory Results - last 24 hr 08/10/21 08/10/21 08/10/21 13:42 13:42 13:42 WBC 10.0 RBC 3.62 L Hgb 10.7 L Hct 33.7 L MCV 93.1 MCH 29.6 MCHC 31.8 L RDW Std Deviation 47.7 H RDW Coeff of Jennifer 14.1 Plt Count 262 MPV 12.4 H Immature Gran % (Auto) 0.600 Neut % (Auto) 77.5 H Lymph % (Auto) 12.5 L Barren % (Auto) 7.0 Eos % (Auto) 2.0 Baso % (Auto) 0.4 Absolute Neuts (auto) 7.8 H Absolute Lymphs (auto) 1.25 Nucleated RBC % 0 ESR 67 H Sodium 140 Potassium 4.0 Chloride 107 Carbon Dioxide 27.0 Anion Gap 6 BUN 13 Creatinine 0.84 Estim Creat Clear Calc 105.21 Est GFR (MDRD) Af Amer 121 Est GFR (MDRD) Non-Af 100 BUN/Creatinine Ratio 15.5 Glucose 96 Calcium 8.5 Total Bilirubin 0.60 Direct Bilirubin 0.23 AST 15 ALT 37 Alkaline Phosphatase 105 Troponin I High Sens 7 C-React Prot Ext Range Total Protein 7.4 Albumin 3.0 L Globulin 4.4 H Lipase 111 08/10/21 13:42 WBC RBC Hgb Hct MCV MCH MCHC RDW Std Deviation RDW Coeff of Jennifer Plt Count MPV Immature Gran % (Auto) Neut % (Auto) Lymph % (Auto) Barren % (Auto) Eos % (Auto) Baso % (Auto) Absolute Neuts (auto) Absolute Lymphs (auto) Nucleated RBC % ESR Sodium Potassium Chloride Carbon Dioxide Anion Gap BUN Creatinine Estim Creat Clear Calc Est GFR (MDRD) Af Amer Est GFR (MDRD) Non-Af BUN/Creatinine Ratio Glucose Calcium Total Bilirubin Direct Bilirubin AST ALT Alkaline Phosphatase Troponin I High Sens C-React Prot Ext Range 94.90 H Total Protein Albumin Globulin Lipase Radiography Diagnostic Testing: Clinical Impression(s) from Imaging Studies Chest X-Ray 08/10/21 14:10 IMPRESSION: Cardiomegaly and mild degree of vascular congestion. Electronically Signed: Carson Rodriguez MD at 14:40 EDT , Service support , Echocardiogram 08/10/21 15:28 Interpretation Summary Normal LV size. Left ventricular systolic function is normal. The estimated ejection fraction is 55 %. Stage 1 diastolic dysfunction. Moderate pericardial effusion. Early tamponade cannot be excluded. Efffusion measures 1.8 Ordering Physician: Maribell Renee Referring Physician: Flora Sarmiento Performed By: Liss Correa, CYDNEYCS, RVT Abdomen/Pelvis CT 08/11/21 06:41 IMPRESSION: Small bilateral pleural effusions with bibasilar atelectasis. Moderate sized pericardial effusion. Cholelithiasis. Bilateral renal cysts. Electronically Signed: Carson Rodriguez MD at 8:33 EDT , Service support , Discharge Plan Dx/Rx/DC Orders Clinical Impression: Pericardial effusion Disposition Disposition: Acute Care Hospital [facility] Discharge Date/Time: 08/11/21 09:22
--- NOTE | 2021-08-10 14:10 | RAD_ITS ---
STUDY: X-RAY CHEST REASON FOR EXAM: Male, 56 years old. Cp TECHNIQUE: Single AP portable view of the chest. COMPARISON: Comparison is made with prior study 08/08/2021. FINDINGS: EKG electrodes are seen. Mild degree of vascular congestion. Blunting of the left costophrenic angle. There is moderate cardiac enlargement. Normal mediastinum and jeanie. Normal visualized pulmonary arteries. There is atherosclerotic tortuosity of the aortic arch and descending thoracic aorta. There are diffuse degenerative changes of the visualized thoracic spine. Normal visualized ribs, clavicles, and shoulders. There is no demonstrated abnormality of the visualized soft tissue structures of the upper abdomen. RAD/Chest 1 View (Portable) IMPRESSION: Cardiomegaly and mild degree of vascular congestion. Electronically Signed: Carson Rodriguez MD at 14:40 EDT , Service support ,
[2021-08-10 14:15] LABS: Absolute Lymphocyte Count 1.25 X10^3/uL (0.83-4.51); Absolute Neutrophil Count 7.8 X10^3/uL (2.0-7.7); Basophil# 0.04 X10^3/uL; Basophil% 0.4 % (0-1); Hematocrit 33.7 % (40-54); Hemoglobin 10.7 g/dL (13.0-16.5); Lymphocyte # 1.25 X10^3/ul (0.83-4.51); Lymphocyte % 12.5 % (19-41); Mean Corp Hgb Conc 31.8 g/dL (32-36); Mean Corpuscular Hgb 29.6 pg (27.0-32.0); Mean Corpuscular Volume 93.1 fL (80-94); Mean Platelet Vol. 12.4 fl (6.2-12.0); NRBC Flagged by Analyzer 0 % (0-5); Neutrophil # 7.79 X10^3/uL (2.7-7.7); Neutrophil % 77.5 % (47-70); Platelet Count 262 K/mm3 (150-450); RBC Distribution Width CV 14.1 % (11.6-14.6); RBC Distribution Width SD 47.7 fl (35.1-43.9); Red Blood Count 3.62 M/mm3 (4.6-6.2)
[2021-08-10] MEDS: Aspirin 81 MG TAB.CHEW 243 MG PO (14:19)
[2021-08-10 14:30] LABS: AST(SGOT) 15 U/L (15-37); Alanine Aminotransfer ALT/SGPT 37 U/L (16-61); Alkaline Phosphatase 105 U/L (45-117); Anion Gap 6 (5-15); BUN 13 mg/dL (7-18); BUN/Creat Ratio 15.5 RATIO (10-20); Bilirubin, Direct 0.23 mg/dL (0.00-0.30); Calcium,Total 8.5 mg/dL (8.5-10.1); Chloride 107 mmol/L (98-107); Creatinine, Serum 0.84 mg/dL (0.70-1.30); EST Glomerular Filtration Rate 100 mL/min (>60); Est Glom Filt Rate - Afr Amer 121 mL/min (>60); Estimated Creatinine Clearance 105.21 ml/min; Globulin 4.4 g/dL (2.2-4.2); Glucose 96 mg/dL (74-106); Lipase 111 U/L (73-393); Protein, Total 7.4 g/dL (6.4-8.2); Sodium Level 140 mmol/L (136-145); Troponin-I HS 7 pg/mL (3.0-78.0)
--- NOTE | 2021-08-10 15:28 | ECHOD_ITS ---
Reason For Study: Pericardial Effusion Procedure This was a 2D Doppler, Color Flow transthoracic echocardiogram. Exam performed portable in ED. Left Ventricle Normal LV size. Left ventricular systolic function is normal. The estimated ejection fraction is 55 %. Stage 1 diastolic dysfunction. No regional wall motion abnormalities noted. Right Ventricle Normal RV size. Normal systolic function. Atria Normal left atrium. Normal right atrium. Mitral Valve Normal mitral valve. Tricuspid Valve Normal tricuspid valve. Aortic Valve Normal aortic valve. Pulmonic Valve Normal pulmonic valve. Great Vessels Normal aortic root. The pulmonary artery is normal size. Normal inferior vena cava. Pericardium/Pleural Moderate pericardial effusion. The diastolic compression of the right atrium is suggestive of cardiac tamponade. Early tamponade cannot be excluded. Efffusion measures 1.8. MMode/2D Measurements & Calculations LVIDd: 4.4 cm IVSd: 1.0 cm Ao root diam: 3.9 cm LVIDs: 2.8 cm LVPWd: 1.1 cm RVDd: 3.0 cm FS: 36.9 % LAV(MOD-bp): 53.1 ml LVAd ap4: 27.1 cm2 SV(MOD-sp4): 46.2 ml LAV(MOD-bp) Indexed: 24.4 ml/m2 LVLd ap4: 7.6 cm LAV(MOD-sp2): 46.1 ml EDV(MOD-sp4): 80.1 ml LAV(MOD-sp4): 53.5 ml EDV(sp4-el): 81.4 ml LVAs ap4: 15.3 cm2 LVLs ap4: 6.1 cm ESV(MOD-sp4): 33.9 ml ESV(sp4-el): 32.6 ml EF(MOD-sp4): 57.7 % EF(sp4-el): 59.9 % SV(sp4-el): 48.8 ml LA A4 area: 20.1 cm2 LA dimension(2D): 3.8 cm RA A4 area: 14.9 cm2 Doppler Measurements & Calculations MV E max buzz: 49.0 cm/sec Lat Peak E' Buzz: 9.6 cm/sec Med Peak E' Buzz: 5.8 cm/sec MV A max buzz: 62.4 cm/sec E/E' lat: 5.1 E/E' med: 8.4 MV E/A: 0.79 Ao V2 max: 117.1 cm/sec LV V1 max: 139.4 cm/sec PA V2 max: 81.5 cm/sec Ao max P.5 mmHg LV V1 max P.8 mmHg Ao V2 mean: 79.4 cm/sec Ao mean P.8 mmHg Ao V2 VTI: 23.4 cm TR max buzz: 233.4 cm/sec TR max P.8 mmHg ECHO/Echo Complete Interpretation Summary Normal LV size. Left ventricular systolic function is normal. The estimated ejection fraction is 55 %. Stage 1 diastolic dysfunction. Moderate pericardial effusion. Early tamponade cannot be excluded. Efffusion measures 1.8 Ordering Physician: Maribell Renee Referring Physician: Flora Sarmiento Performed By: Liss Correa RDCS, RVT
[2021-08-10 16:20] LABS: Erythrocyte Sedimentation Rate 67 mm/hr (0-20)
--- NOTE | 2021-08-10 18:24 | NURSING ---
CALLED [facility] THEY ARE STILL WORKING ON A BED FOR THE PATIENT
[2021-08-11] VITALS (18 sets, daily range): BP systolic 99–121; BP diastolic 67–83; PULSE 69–136; RESP 13–22; TEMP 36.5–36.8; O2SAT 91–95; BMI 27.6
[2021-08-11] MEDS: fentaNYL 100 MCG/2 ML Ampul 25 MCG IV ×2 (00:05→06:51)
[2021-08-11] MEDS: Ondansetron 4 MG/2 ML Vial IV (00:05)
--- NOTE | 2021-08-11 02:26 | ED.RN ---
HR in 130s-140. pt denies distress. now back to 70s.
--- NOTE | 2021-08-11 06:34 | EKG12_ITS ---
Test Reason : CP Blood Pressure : / mmHG Vent. Rate : 077 BPM Atrial Rate : 077 BPM P-R Int : 140 ms QRS Dur : 086 ms QT Int : 402 ms P-R-T Axes : 024 034 048 degrees QTc Int : 454 ms Normal sinus rhythm Normal ECG Confirmed by RAY NELSON, OBDULIO ([id number]), editor farm journal CECELIA MORIN ([id number]) on 08/12/2021 9:06:26 AM Referred By: KELSI/ALICE Confirmed By:OBDULIO BELL MD
--- NOTE | 2021-08-11 06:41 | CT_ITS ---
STUDY: CT ABDOMEN AND PELVIS WITHOUT CONTRAST REASON FOR EXAM: Male, 56 years old. Right chest pain and right upper quadrant pain. Patient has a history of testicular carcinoma with the orchiectomy. RADIATION DOSAGE (If Supplied By Facility): CTDIvol = ( 12.25 ) mGy, DLP = ( 618.14 ) mGycm TECHNIQUE: Transaxial images were obtained from the dome of the diaphragm to the symphysis pubis without oral contrast, and without intravenous contrast. Sagittal and coronal images were reconstructed. Individualized dose optimization techniques were used for this CT. COMPARISON: Comparison is made with prior examination dated 11/02/2017. FINDINGS: Small bilateral pleural effusions with bibasilar atelectasis. Moderate-sized pericardial effusion. Normal liver. There are multiple gallstones. Normal spleen. Normal pancreas. Normal bilateral adrenal glands. There is a 1.3 cm cyst in the mid medial aspect of the right kidney. There is a 3.9 cm x 4 cm cyst in the posterior medial aspect of the left kidney. Normal visualized stomach. Normal small intestine. There are scattered colonic diverticula consistent with diverticulosis. The appendix is visualized and appears normal. There is diffuse atherosclerotic calcification of the abdominal aorta, without a demonstrated aneurysm. Normal inferior vena cava. Normal retroperitoneum. Bladder wall thickening L urinary bladder is not completely distended at this time. 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 There is a small umbilical hernia containing fat. There are diffuse degenerative changes of the visualized lumbar spine. The patient is status post left hip replacement. CT/Abdomen/Pelvis without Cont IMPRESSION: Small bilateral pleural effusions with bibasilar atelectasis. Moderate sized pericardial effusion. Cholelithiasis. Bilateral renal cysts. Electronically Signed: Carson Rodriguez MD at 8:33 EDT , Service support ,
--- NOTE | 2021-08-11 06:56 | ED.RN ---
MEDICATED PT WITH FENTANYL AND THEN BECAME HYPOXIC WITH OXYGEN DROPPING TO 88. IMPROVED WHEN PLACED ON 2L NC.
--- NOTE | 2021-08-11 10:06 | PCM.HP.STD ---
HPI - General General Date of Admission: 08/11/21 HPI Narrative SAURABH MCDANIELS, is a 56 M who presents with right lower chest and right upper quadrant abdominal pain. Chest pain symptoms started about 3 days prior to his admission. In the ER he did go into A. fib with RVR and did convert with a dose of Cardizem. CT of the chest did not show PE but did show a moderate pericardial effusion as well as cholelithiasis. Cardiology was consulted and they recommended an echocardiogram which confirmed a moderate sized pericardial effusion and recommended transfer to tertiary care center. He has been accepted at , however they do not have a bed and he has been in the ER for 18 hours. Now he states that most of his discomfort is abdominal discomfort, which has been gradually getting worse over the last several weeks. He denies any association with food and has not noticed anything making it better or worse FORMERLY [facility], [facility] Medical History (Updated 08/10/21 @ 17:[address] Maribell Renee MD) Anxiety Depression Hypertension Testicular cancer Home Medications aspirin 81 mg PO DAILY@0800 09/07/16 [History Last Taken 08/10/21 08:00] cholecalciferol (vitamin D3) [Vitamin D] 2,000 unit PO DAILY 09/07/16 [History Last Taken 08/10/21 08:00] garlic 500 mg PO DAILY 09/07/16 [History Last Taken Unknown] omega-3 fatty acids 800 mg PO DAILY 09/07/16 [History Last Taken 08/10/21 08:00] multivitamin [Multiple Vitamins] 1 ea PO DAILY 03/06/18 [History Last Taken 08/10/21 08:00] sertraline 100 mg PO DAILY 05/24/18 [History Last Taken 08/10/21 08:00] metoprolol tartrate 25 mg PO BID 08/11/21 [History Last Taken 08/10/21 08:00] Allergy/AdvReac Type Severity Reaction Status Date / Time No Known Allergies Allergy Verified 08/10/21 13:32 Family History (Updated 08/11/21 @ 15:[address] Karan Da Silva MD) Other Cancer Heart disease Surgical History History of hip surgery History of orchiectomy Social History Smoking Status: Former smoker ROS Constitutional Constitutional: Denies chills, fatigue, fever(s) or malaise Eyes Eyes: Denies blurry vision ENT HEENT: Denies headache(s) or nasal discharge Cardiovascular Cardiovascular: Reports chest pain; Denies dyspnea on exertion or syncope Respiratory/Chest Respiratory/Chest: Denies cough, shortness of breath at rest or shortness of breath with exertion Gastrointestinal Gastrointestinal: Reports abdominal pain; Denies constipation, diarrhea, nausea or vomiting Genitourinary Genitourinary: Denies dysuria Neurologic Neurologic: Denies focal weakness, numbness or tremor(s) Psychiatric Psychiatric: Denies anxiety or depression Vital Signs Vital Signs Vital Signs: 08/10/21 13:28 08/10/21 13:49 08/10/21 14:28 Temperature 98.0 F Temperature Source Temporal Pulse Rate 42 L 79 Respiratory Rate 16 18 Respiratory Effort Normal Non-Labored Blood Pressure 133/90 H 117/85 H Blood Pressure Mean 104 95 Blood Pressure Source Blood Pressure Position Blood Pressure Location Pulse Ox 97 94 Oxygen Delivery Method Room Air Room Air Oxygen Flow Rate (L/min) 08/10/21 15:00 08/10/21 16:00 08/10/21 17:19 Temperature Temperature Source Pulse Rate 71 63 71 Respiratory Rate 18 20 H 18 Respiratory Effort Blood Pressure 117/67 113/66 126/76 H Blood Pressure Mean 83 81 92 Blood Pressure Source Blood Pressure Position Blood Pressure Location Pulse Ox 94 94 95 Oxygen Delivery Method Room Air Room Air Room Air Oxygen Flow Rate (L/min) 08/10/21 18:19 08/10/21 19:00 08/10/21 20:52 Temperature Temperature Source Pulse Rate 59 L 75 78 Respiratory Rate 14 19 H 16 Respiratory Effort Blood Pressure 119/66 129/75 H 128/76 H Blood Pressure Mean 83 93 93 Blood Pressure Source Blood Pressure Position Blood Pressure Location Pulse Ox 99 94 98 Oxygen Delivery Method Room Air Room Air Room Air Oxygen Flow Rate (L/min) 08/10/21 22:07 08/10/21 23:34 08/11/21 02:01 Temperature 96.9 F L Temperature Source Temporal Pulse Rate 75 71 88 Respiratory Rate 20 H 20 H 20 H Respiratory Effort Blood Pressure 126/75 H 112/77 114/67 Blood Pressure Mean 92 88 82 Blood Pressure Source Blood Pressure Position Blood Pressure Location Pulse Ox 95 96 92 Oxygen Delivery Method Room Air Room Air Room Air Oxygen Flow Rate (L/min) 08/11/21 04:00 08/11/21 05:00 08/11/21 06:46 Temperature Temperature Source Pulse Rate 78 80 121 H Respiratory Rate 21 H 21 H 19 H Respiratory Effort Blood Pressure 121/81 H 111/71 99/71 Blood Pressure Mean 94 84 80 Blood Pressure Source Blood Pressure Position Blood Pressure Location Pulse Ox 93 92 94 Oxygen Delivery Method Room Air Oxygen Flow Rate (L/min) 08/11/21 06:51 08/11/21 06:56 08/11/21 07:20 Temperature Temperature Source Pulse Rate 74 136 H Respiratory Rate 13 22 H Respiratory Effort Blood Pressure 99/71 117/71 Blood Pressure Mean 80 86 Blood Pressure Source Blood Pressure Position Blood Pressure Location Pulse Ox 93 95 91 Oxygen Delivery Method Nasal Cannula Nasal Cannula Oxygen Flow Rate (L/min) 2 2 08/11/21 08:02 08/11/21 09:04 08/11/21 10:00 Temperature 97.7 F L 97.7 F L 97.7 F L Temperature Source Temporal Temporal Temporal Pulse Rate 77 77 Respiratory Rate 15 18 Respiratory Effort Blood Pressure 121/77 H 110/77 Blood Pressure Mean 91 88 Blood Pressure Source Monitor Blood Pressure Position Semi-Fowlers Blood Pressure Location Left Arm Pulse Ox 95 94 Oxygen Delivery Method Nasal Cannula Room Air Oxygen Flow Rate (L/min) 2 Weight Weight: 218 lb Body Mass Index (BMI) 29.5 Physical Exam Const alert, oriented x3 and no apparent distress General Appearance: cooperative HEENT normocephalic and moist oral mucous membranes Eyes PERRL, EOMs intact bilaterally and conjunctivae normal Neck supple and no JVD Resp normal respiratory effort, no retractions, no use of accessory muscles and clear to auscultation bilaterally Auscultation: Negative for crackles, rales, rhonchi or wheezes Cardio regular rate, regular rhythm, S1 normal heart sound, S2 normal heart sound and no murmurs GI soft to palpation, non-tender and non-distended; Negative for hepatosplenomegaly Extremity no clubbing, cyanosis or edema Skin no rashes or lesions noted Neuro no focal motor deficits and no sensory deficits noted Psych affect normal Appearance: appropriate Results Lab / Micro Data Result Diagrams: 08/10/21 13:42 08/10/21 13:42 Labs: Laboratory Results - last 24 hr 08/10/21 13:42: WBC 10.0, RBC 3.62 L, Hgb 10.7 L, Hct 33.7 L, MCV 93.1, MCH 29.6, MCHC 31.8 L, RDW Std Deviation 47.7 H, RDW Coeff of Jennifer 14.1, Plt Count 262, MPV 12.4 H, Immature Gran % (Auto) 0.600, Neut % (Auto) 77.5 H, Lymph % (Auto) 12.5 L, [place] % (Auto) 7.0, Eos % (Auto) 2.0, Baso % (Auto) 0.4, Absolute Neuts (auto) 7.8 H, Absolute Lymphs (auto) 1.25, Nucleated RBC % 0 08/10/21 13:42: Sodium 140, Potassium 4.0, Chloride 107, Carbon Dioxide 27.0, Anion Gap 6, BUN 13, Creatinine 0.84, Estim Creat Clear Calc 105.21, Est GFR (MDRD) Af Amer 121, Est GFR (MDRD) Non-Af 100, BUN/Creatinine Ratio 15.5, Glucose 96, Calcium 8.5, Total Bilirubin 0.60, Direct Bilirubin 0.23, AST 15, ALT 37, Alkaline Phosphatase 105, Troponin I High Sens 7, Total Protein 7.4, Albumin 3.0 L, Globulin 4.4 H, Lipase 111 08/10/21 13:42: ESR 67 H 08/10/21 13:42: C-React Prot Ext Range 94.90 H Micro: Microbiology 08/10/21 17:16 Nasal Secretion SARS-CoV-2 Antigen (Rapid) - Final Radiology Impression Chest X-Ray 08/10/21 14:10 IMPRESSION: Cardiomegaly and mild degree of vascular congestion. Electronically Signed: Carson Rodriguez MD at 14:40 EDT , Service support , Echocardiogram 08/10/21 15:28 Interpretation Summary Normal LV size. Left ventricular systolic function is normal. The estimated ejection fraction is 55 %. Stage 1 diastolic dysfunction. Moderate pericardial effusion. Early tamponade cannot be excluded. Efffusion measures 1.8 Ordering Physician: Maribell Renee Referring Physician: Flora Sarmiento Performed By: iLss Correa, CYDNEYCS, RVT Abdomen/Pelvis CT 08/11/21 06:41 IMPRESSION: Small bilateral pleural effusions with bibasilar atelectasis. Moderate sized pericardial effusion. Cholelithiasis. Bilateral renal cysts. Electronically Signed: Carson Rodriguez MD at 8:33 EDT , Service support , Assessment & Plan Assessment/Plan (1) Pericardial effusion: (2) Paroxysmal atrial fibrillation: PLAN: 1. Moderate pericardial effusion/new onset paroxysmal A. fib -2 days ago in the ER had A. fib that converted with Cardizem. He was transitioned to 25 mg p.o. twice daily of metoprolol -At that time it was noted that he stated that the pain was worse in his chest when he was laying flat and better when belching -Given the moderate pericardial effusion, it is recommended that he be transferred to , cardiothoracic surgery has accepted him there is a patient currently awaiting a bed -We will hold his aspirin secondary to possible intervention given his intermittent PVCs and arrhythmia -We will hold off any anticoagulation for his paroxysmal A. fib at this time -He was noted to also have enlarged mediastinal lymph nodes on CTA consistent with either inflammatory or possibly malignancy -Echo with an EF of 55% with stage I diastolic dysfunction, moderate pericardial effusion and early tamponade cannot be excluded 2. Anxiety/depression -Stable -Continue with Zoloft DVT: SCDs Charges/Coding Visit Charges Inpatient E&M: 14258 Init Hosp L2
--- NOTE | 2021-08-11 10:56 | CASEMGMT ---
According to the [facility] website, the following are in-network tertiary facilities: [facility], [place], [facility], [facility], [facility], [facility], and . Darlene COLEY CM
[2021-08-11] MEDS: Sertraline 100 MG Tablet PO (12:57)
[2021-08-11] MEDS: Metoprolol Tartrate 25 MG Tablet PO ×2 (12:57→20:35)
[2021-08-11] MEDS: Cholecalciferol (VIT D3) 25 MCG TABLET (1,000 UNITS) 50 MCG PO (12:57)
[2021-08-11] MEDS: Multivitamins,Therapeutic Tablet 1 TABLET PO (12:57)
[2021-08-12] VITALS (10 sets, daily range): BP systolic 110–119; BP diastolic 68–81; PULSE 70–83; RESP 12–18; TEMP 36.6–37.3; O2SAT 93–97
[2021-08-12] MEDS: Sertraline 100 MG Tablet PO (08:56)
[2021-08-12] MEDS: Cholecalciferol (VIT D3) 25 MCG TABLET (1,000 UNITS) 50 MCG PO (08:56)
[2021-08-12] MEDS: Metoprolol Tartrate 25 MG Tablet PO ×2 (08:56→21:12)
--- NOTE | 2021-08-12 09:11 | CASEMGMT ---
Per , they are still at 'high census' and no bed at this time. SStkiana RN CM
--- NOTE | 2021-08-12 09:50 | PCM.PN.HOSP ---
Subjective Subjective Feels about the same as yesterday, still has abdominal discomfort and states that he has not had a bowel movement for several days. Denies any significant short of breath but states that he has noticed that his chest pain is worse when he lays down and better when he sits up Objective Data Objective Data Vital Signs: Vital Signs Temp Pulse Resp BP Pulse Ox 98.4 F 78 18 119/74 95 08/12/21 08:48 08/12/21 08:56 08/12/21 08:48 08/12/21 08:56 08/12/21 08:48 Oxygen Flow Rate (L/min) 2 Oxygen Delivery Method Room Air Weight: 203 lb 4.259 oz Body Mass Index (BMI) 27.6 Intake & Output: Intake and Output for Last 24 Hours 08/11/21 08/12/21 08/13/21 03:59 03:59 03:59 Intake Total 540 / 540 Balance 540 / 540 Lab / Micro Data Result Diagrams: 08/10/21 13:42 08/10/21 13:42 Micro: Microbiology 08/10/21 17:16 Nasal Secretion SARS-CoV-2 Antigen (Rapid) - Final Physical Exam Const alert, oriented x3 and no apparent distress General Appearance: cooperative HEENT normocephalic and moist oral mucous membranes Eyes PERRL, EOMs intact bilaterally and conjunctivae normal Neck supple and no JVD Resp normal respiratory effort, no retractions, no use of accessory muscles and clear to auscultation bilaterally Auscultation: Negative for crackles, rales, rhonchi or wheezes Cardio regular rate, regular rhythm, S1 normal heart sound, S2 normal heart sound and no murmurs GI soft to palpation, non-tender and non-distended; Negative for hepatosplenomegaly Extremity no clubbing, cyanosis or edema Skin no rashes or lesions noted Neuro no focal motor deficits and no sensory deficits noted Psych affect normal Appearance: appropriate Assessment & Plan Assessment/Plan (1) Pericardial effusion: (2) Paroxysmal atrial fibrillation: PLAN: 1. Moderate pericardial effusion/new onset paroxysmal A. fib -2 days prior to his admission in the ER had A. fib that converted with Cardizem. He was transitioned to 25 mg p.o. twice daily of metoprolol -At that time it was noted that he stated that the pain was worse in his chest when he was laying flat and better when belching -Given the moderate pericardial effusion, it is recommended that he be transferred to , cardiothoracic surgery has accepted him there is a patient currently awaiting a bed -We will hold his aspirin secondary to possible intervention given his intermittent PVCs and arrhythmia -We will hold off any anticoagulation for his paroxysmal A. fib at this time -He was noted to also have enlarged mediastinal lymph nodes on CTA consistent with either inflammatory or possibly malignancy -Echo with an EF of 55% with stage I diastolic dysfunction, moderate pericardial effusion and early tamponade cannot be excluded 2. Anxiety/depression -Stable -Continue with Zoloft DVT: SCDs
--- NOTE | 2021-08-12 11:04 | CASEMGMT ---
Per Himanshu, [facility] school attendance secretary, states they are still at 'high census' and no bed at this time. SStkiana COLEY CM
[2021-08-12] MEDS: Multivitamins,Therapeutic Tablet 1 TABLET PO (12:10)
--- NOTE | 2021-08-12 13:22 | NURSING ---
Senia at updated on patient condition, runs of V-Tach, A-flutter. No beds available. Encourage to reconsult to help expedite transfer.
--- NOTE | 2021-08-12 13:50 | CASEMGMT ---
BRIJESH LEZAMA assessment: Face to Face with patient for initial transition planning/care coordination assessment. BRIJESH LEZAMA introduced self and role at [facility], pt voices understanding and consents to assessment. Pt is sitting up in bed on room air in no distress. Pt is A/Ox4 and answers all questions appropriately. Care providers, pharmacy, and demographics verified. Presentation: Right chest with radiation to RUQ Admitting dx: Pericardial effusion PCP: Guillermina Specialists: Shaji, uro; Celeste, ortho for hip; Naresh, ortho for ankle Preferred Pharmacy: [facility] Insurance: [employer] Prescription Benefit: [employer] Living Will/HPOA: Pt states does not have LW/HPOA and declines AD info. LNOK: Rivka Recinos, Living Arrangements: Pt states lives with in 1 story home with 2 steps in and states no concerns at home. Pt is independent with ADL's. Transportation: Pt states drives self and states no transportation concerns. DME/HHC: Pt states has crutches and walker. Pt states no need for any further DME. Pt states no hx of SNF but has had HHC in the past. Pt states no concerns with going home at time of discharge. 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 Pt states does not smoke cigarettes or drinks ETOH. Pt states no further concerns/needs. CM to follow for any further discharge planning/needs. Advised pt to ask for CM if any further questions/concerns/needs arise, voices understanding. Pt Goal: Home Plan: Transfer to , when bed obtained-accepted by Dr. Stahl, cardiothoracic surgeon. SStkiana COLEY CM
[2021-08-12] MEDS: Polyethylene Glycol 3350 17 GM PACKET PO ×2 (15:11→21:12)
[2021-08-12] MEDS: oxyCODONE 5 MG Tablet PO (19:38)
[2021-08-13] VITALS (10 sets, daily range): BP systolic 106–117; BP diastolic 75–79; PULSE 63–77; RESP 16–18; TEMP 36.5–37.2; O2SAT 94–97
[2021-08-13] MEDS: oxyCODONE 5 MG Tablet PO ×2 (02:03→21:02)
[2021-08-13 06:01] LABS: Basophil# 0.04 X10^3/uL; Basophil% 0.5 % (0-1); Eosinophil# 0.26 X10^3/uL; Eosinophils% 3.2 % (0-5); Hematocrit 32.8 % (40-54); Hemoglobin 10.6 g/dL (13.0-16.5); Lymphocyte % 16.2 % (19-41); Mean Corp Hgb Conc 32.3 g/dL (32-36); Mean Corpuscular Volume 92.9 fL (80-94); Mean Platelet Vol. 12.1 fl (6.2-12.0); Monocyte# 0.43 X10^3/uL; Monocyte% 5.4 % (0-10); NRBC Flagged by Analyzer 0 % (0-5); Neutrophil # 5.96 X10^3/uL (2.7-7.7); Neutrophil % 74.2 % (47-70); Platelet Count 320 K/mm3 (150-450); RBC Distribution Width CV 14.2 % (11.6-14.6); RBC Distribution Width SD 48.3 fl (35.1-43.9); Red Blood Count 3.53 M/mm3 (4.6-6.2)
[2021-08-13 06:04] LABS: Anion Gap 6 (5-15); BUN 15 mg/dL (7-18); BUN/Creat Ratio 18.5 RATIO (10-20); Calcium,Total 8.6 mg/dL (8.5-10.1); Chloride 107 mmol/L (98-107); Creatinine, Serum 0.81 mg/dL (0.70-1.30); EST Glomerular Filtration Rate 104 mL/min (>60); Est Glom Filt Rate - Afr Amer 125 mL/min (>60); Estimated Creatinine Clearance 109.11 ml/min; Glucose 95 mg/dL (74-106); Potassium 3.9 mmol/L (3.5-5.1); Sodium Level 140 mmol/L (136-145)
[2021-08-13] MEDS: Sertraline 100 MG Tablet PO (08:48)
[2021-08-13] MEDS: Polyethylene Glycol 3350 17 GM PACKET PO ×2 (08:48→20:59)
[2021-08-13] MEDS: Metoprolol Tartrate 25 MG Tablet PO ×2 (08:48→20:59)
[2021-08-13] MEDS: Cholecalciferol (VIT D3) 25 MCG TABLET (1,000 UNITS) 50 MCG PO (08:49)
[2021-08-13] MEDS: Multivitamins,Therapeutic Tablet 1 TABLET PO (12:57)
--- NOTE | 2021-08-13 14:07 | PN.HOSP_ITS ---
Subjective Subjective Had a bowel movement today so feels little bit better from his abdominal standpoint but states that he feels little bit more tight in his chest Objective Data Objective Data Vital Signs: Vital Signs Temp Pulse Resp BP Pulse Ox 97.7 F L 72 18 106/75 97 08/13/21 08:40 08/13/21 08:48 08/13/21 08:40 08/13/21 08:48 08/13/21 08:40 Oxygen Flow Rate (L/min) 2 Oxygen Delivery Method Room Air Weight: 203 lb 4.259 oz Body Mass Index (BMI) 27.6 Intake & Output: Intake and Output for Last 24 Hours 08/12/21 08/13/21 08/14/21 03:59 03:59 03:59 Intake Total 540 / 540 720 / 720 Balance 540 / 540 720 / 720 Lab / Micro Data Result Diagrams: 08/13/21 05:20 08/13/21 05:20 Labs: Laboratory Results - last 24 hr 08/13/21 05:20: WBC 8.0, RBC 3.53 L, Hgb 10.6 L, Hct 32.8 L, MCV 92.9, MCH 30.0, MCHC 32.3, RDW Std Deviation 48.3 H, RDW Coeff of Jennifer 14.2, Plt Count 320, MPV 12.1 H, Immature Gran % (Auto) 0.500, Neut % (Auto) 74.2 H, Lymph % (Auto) 16.2 L, [place] % (Auto) 5.4, Eos % (Auto) 3.2, Baso % (Auto) 0.5, Absolute Neuts (auto) 6.0, Absolute Lymphs (auto) 1.30, Nucleated RBC % 0 08/13/21 05:20: Sodium 140, Potassium 3.9, Chloride 107, Carbon Dioxide 27.0, Anion Gap 6, BUN 15, Creatinine 0.81, Estim Creat Clear Calc 109.11, Est GFR (MDRD) Af Amer 125, Est GFR (MDRD) Non-Af 104, BUN/Creatinine Ratio 18.5, Glucose 95, Calcium 8.6 Micro: Microbiology 08/10/21 17:16 Nasal Secretion SARS-CoV-2 Antigen (Rapid) - Final Physical Exam Const alert, oriented x3 and no apparent distress General Appearance: cooperative HEENT normocephalic and moist oral mucous membranes Eyes PERRL, EOMs intact bilaterally and conjunctivae normal Neck supple and no JVD Resp normal respiratory effort, no retractions, no use of accessory muscles and clear to auscultation bilaterally Auscultation: Negative for crackles, rales, rhonchi or wheezes Cardio regular rate, regular rhythm, S1 normal heart sound, S2 normal heart sound and no murmurs GI soft to palpation, non-tender and non-distended; Negative for hepatosplenomegaly Extremity no clubbing, cyanosis or edema Skin no rashes or lesions noted Neuro no focal motor deficits and no sensory deficits noted Psych affect normal Appearance: appropriate Assessment & Plan Assessment/Plan (1) Pericardial effusion: (2) Paroxysmal atrial fibrillation: PLAN: 1. Moderate pericardial effusion/new onset paroxysmal A. fib -2 days prior to his admission in the ER had A. fib that converted with Cardizem. He was transitioned to 25 mg p.o. twice daily of metoprolol. He remained stable diastolic pressures are low and stable -At that time it was noted that he stated that the pain was worse in his chest when he was laying flat and better when belching -Given the moderate pericardial effusion, it is recommended that he be transferred to , cardiothoracic surgery has accepted him there is a patient cu rrently awaiting a bed -We will hold his aspirin secondary to possible intervention given his interm ittent PVCs and arrhythmia -We will hold off any anticoagulation for his paroxysmal A. fib at this time -He was noted to also have enlarged mediastinal lymph nodes on CTA consistent with either inflammatory or possibly malignancy -Echo with an EF of 55% with stage I diastolic dysfunction, moderate pericardial effusion and early tamponade cannot be excluded 2. Anxiety/depression -Stable -Continue with Zoloft DVT: SCDs Charges/Coding Visit Charges Inpatient E&M: 96058 Subs Hosp L2
--- NOTE | 2021-08-13 18:56 | PCS.PANDOC ---
PANDEMIC DOCUMENTATION INITIATED: Date: 08/13/2021 Time: 1855
[2021-08-14] VITALS (11 sets, daily range): BP systolic 99–118; BP diastolic 65–76; PULSE 67–78; RESP 18; TEMP 36.4–37; O2SAT 94–96
[2021-08-14] MEDS: oxyCODONE 5 MG Tablet PO ×3 (03:16→21:10)
[2021-08-14] MEDS: Sertraline 100 MG Tablet PO (09:47)
[2021-08-14] MEDS: Cholecalciferol (VIT D3) 25 MCG TABLET (1,000 UNITS) 50 MCG PO (09:47)
[2021-08-14] MEDS: Metoprolol Tartrate 25 MG Tablet PO (09:47)
[2021-08-14] MEDS: Multivitamins,Therapeutic Tablet 1 TABLET PO (09:48)
--- NOTE | 2021-08-14 14:10 | PCM.PN.HOSP ---
Subjective Subjective Feels about the same. No significant chest pain he does have some tightness in his chest as well as in his abdomen. He has had multiple bowel movements and feels that he is no longer constipated Objective Data Objective Data Vital Signs: Vital Signs Temp Pulse Resp BP Pulse Ox 98.4 F 69 18 104/73 94 08/14/21 09:45 08/14/21 12:00 08/14/21 09:45 08/14/21 09:47 08/14/21 09:45 Oxygen Flow Rate (L/min) 2 Oxygen Delivery Method Room Air Weight: 203 lb 4.259 oz Body Mass Index (BMI) 27.6 Intake & Output: Intake and Output for Last 24 Hours 08/13/21 08/14/21 08/15/21 03:59 03:59 03:59 Intake Total 720 / 720 720 / 720 240 / 240 Balance 720 / 720 720 / 720 240 / 240 Lab / Micro Data Result Diagrams: 08/13/21 05:20 08/13/21 05:20 Micro: Microbiology 08/10/21 17:16 Nasal Secretion SARS-CoV-2 Antigen (Rapid) - Final Physical Exam Const alert, oriented x3 and no apparent distress General Appearance: cooperative HEENT normocephalic and moist oral mucous membranes Eyes PERRL, EOMs intact bilaterally and conjunctivae normal Neck supple and no JVD Resp normal respiratory effort, no retractions, no use of accessory muscles and clear to auscultation bilaterally Auscultation: Negative for crackles, rales, rhonchi or wheezes Cardio regular rate, regular rhythm, S1 normal heart sound, S2 normal heart sound and no murmurs GI soft to palpation, non-tender and non-distended; Negative for hepatosplenomegaly Extremity no clubbing, cyanosis or edema Skin no rashes or lesions noted Neuro no focal motor deficits and no sensory deficits noted Psych affect normal Appearance: appropriate Assessment & Plan Assessment/Plan (1) Pericardial effusion: (2) Paroxysmal atrial fibrillation: PLAN: 1. Moderate pericardial effusion/new onset paroxysmal A. fib -2 days prior to his admission in the ER had A. fib that converted with Cardizem. He was transitioned to 25 mg p.o. twice daily of metoprolol. He remained stable diastolic pressures are low and stable -At that time it was noted that he stated that the pain was worse in his chest when he was laying flat and better when belching -Given the moderate pericardial effusion, it is recommended that he be transferred to , cardiothoracic surgery has accepted him there is a patient currently awaiting a bed -We will hold his aspirin secondary to possible intervention given his intermittent PVCs and arrhythmia -We will hold off any anticoagulation for his paroxysmal A. fib at this time -He was noted to also have enlarged mediastinal lymph nodes on CTA consistent with either inflammatory or possibly malignancy -Echo with an EF of 55% with stage I diastolic dysfunction, moderate pericardial effusion and early tamponade cannot be excluded 2. Anxiety/depression -Stable -Continue with Zoloft DVT: Lovenox Charges/Coding Visit Charges Inpatient E&M: 32098 Subs Hosp L2
[2021-08-15] VITALS (9 sets, daily range): BP systolic 123–143; BP diastolic 80–93; PULSE 78–89; RESP 16–20; TEMP 36.7–36.8; O2SAT 93–98
[2021-08-15] MEDS: oxyCODONE 5 MG Tablet PO ×3 (03:20→13:36)
[2021-08-15 06:45] LABS: Absolute Lymphocyte Count 1.24 X10^3/uL (0.83-4.51); Basophil# 0.03 X10^3/uL; Basophil% 0.3 % (0-1); Eosinophils% 2.2 % (0-5); Hematocrit 35.8 % (40-54); Hemoglobin 11.2 g/dL (13.0-16.5); Lymphocyte # 1.24 X10^3/ul (0.83-4.51); Lymphocyte % 13.7 % (19-41); Mean Corp Hgb Conc 31.3 g/dL (32-36); Mean Corpuscular Volume 92.7 fL (80-94); Mean Platelet Vol. 11.4 fl (6.2-12.0); Monocyte# 0.52 X10^3/uL; Monocyte% 5.7 % (0-10); NRBC Flagged by Analyzer 0 % (0-5); Neutrophil # 7.02 X10^3/uL (2.7-7.7); Neutrophil % 77.7 % (47-70); Platelet Count 377 K/mm3 (150-450); RBC Distribution Width CV 14.3 % (11.6-14.6); RBC Distribution Width SD 48.2 fl (35.1-43.9); Red Blood Count 3.86 M/mm3 (4.6-6.2); White Blood Count 9.1 K/mm3 (4.4-11.0)
[2021-08-15 07:17] LABS: Anion Gap 7 (5-15); BUN 15 mg/dL (7-18); BUN/Creat Ratio 17.2 RATIO (10-20); Calcium,Total 8.9 mg/dL (8.5-10.1); Chloride 103 mmol/L (98-107); Creatinine, Serum 0.87 mg/dL (0.70-1.30); EST Glomerular Filtration Rate 96 mL/min (>60); Est Glom Filt Rate - Afr Amer 116 mL/min (>60); Estimated Creatinine Clearance 101.58 ml/min; Glucose 94 mg/dL (74-106); Potassium 4.2 mmol/L (3.5-5.1); Sodium Level 137 mmol/L (136-145)
[2021-08-15] MEDS: Multivitamins,Therapeutic Tablet 1 TABLET PO (09:33)
[2021-08-15] MEDS: Cholecalciferol (VIT D3) 25 MCG TABLET (1,000 UNITS) 50 MCG PO (09:33)
[2021-08-15] MEDS: Metoprolol Tartrate 25 MG Tablet PO (09:33)
[2021-08-15] MEDS: Enoxaparin 40 MG/0.4 ML Syringe SC (09:33)
[2021-08-15] MEDS: Sertraline 100 MG Tablet PO (09:33)
--- NOTE | 2021-08-15 10:22 | PN.HOSP_ITS ---
Subjective Subjective States that he is a little bit more short of breath. Objective Data Objective Data Vital Signs: Vital Signs Temp Pulse Resp BP Pulse Ox 98.3 F 82 16 123/91 H 93 08/15/21 09:29 08/15/21 09:33 08/15/21 09:29 08/15/21 09:33 08/15/21 09:29 Oxygen Flow Rate (L/min) 2 Oxygen Delivery Method Room Air Weight: 203 lb 4.259 oz Body Mass Index (BMI) 27.6 Intake & Output: Intake and Output for Last 24 Hours 08/14/21 08/15/21 08/16/21 03:59 03:59 03:59 Intake Total 720 / 720 480 / 480 240 / 240 Balance 720 / 720 480 / 480 240 / 240 Lab / Micro Data Result Diagrams: 08/15/21 06:09 08/15/21 06:09 Labs: Laboratory Results - last 24 hr 08/15/21 06:09: WBC 9.1, RBC 3.86 L, Hgb 11.2 L, Hct 35.8 L, MCV 92.7, MCH 29.0, MCHC 31.3 L, RDW Std Deviation 48.2 H, RDW Coeff of Jennifer 14.3, Plt Count 377, MPV 11.4, Immature Gran % (Auto) 0.400, Neut % (Auto) 77.7 H, Lymph % (Auto) 13.7 L, [place] % (Auto) 5.7, Eos % (Auto) 2.2, Baso % (Auto) 0.3, Absolute Neuts (auto) 7.0, Absolute Lymphs (auto) 1.24, Nucleated RBC % 0 08/15/21 06:09: Sodium 137, Potassium 4.2, Chloride 103, Carbon Dioxide 27.0, Anion Gap 7, BUN 15, Creatinine 0.87, Estim Creat Clear Calc 101.58, Est GFR (MDRD) Af Amer 116, Est GFR (MDRD) Non-Af 96, BUN/Creatinine Ratio 17.2, Glucose 94, Calcium 8.9 Micro: Microbiology 08/10/21 17:16 Nasal Secretion SARS-CoV-2 Antigen (Rapid) - Final Physical Exam Const alert, oriented x3 and no apparent distress General Appearance: cooperative HEENT normocephalic and moist oral mucous membranes Eyes PERRL, EOMs intact bilaterally and conjunctivae normal Neck supple and no JVD Resp normal respiratory effort, no retractions, no use of accessory muscles and clear to auscultation bilaterally Auscultation: Negative for crackles, rales, rhonchi or wheezes Cardio regular rate, regular rhythm, S1 normal heart sound, S2 normal heart sound and no murmurs GI soft to palpation, non-tender and non-distended; Negative for hepatosplenomegaly Extremity no clubbing, cyanosis or edema Skin no rashes or lesions noted Neuro no focal motor deficits and no sensory deficits noted Psych affect normal Appearance: appropriate Assessment & Plan Assessment/Plan (1) Pericardial effusion: (2) Paroxysmal atrial fibrillation: PLAN: 1. Moderate pericardial effusion/new onset paroxysmal A. fib -2 days prior to his admission in the ER had A. fib that converted with Cardizem. He was transitioned to 25 mg p.o. twice daily of metoprolol. He remained stable diastolic pressures are low and stable -At that time it was noted that he stated that the pain was worse in his chest when he was laying flat and better when belching -Given the moderate pericardial effusion, it is recommended that he be transferred to , cardiothoracic surgery has accepted him there is a patient currently awaiting a bed -We will hold his aspirin secondary to possible intervention given his intermittent PVCs and arrhythmia -We will hold off any anticoagulation for his paroxysmal A. fib at this time -He was noted to also have enlarged mediastinal lymph nodes on CTA consistent with either inflammatory or possibly malignancy -Echo with an EF of 55% with stage I diastolic dysfunction, moderate pericardial effusion and early tamponade cannot be excluded -We will consult cardiology for evaluation 2. Anxiety/depression -Stable -Continue with Zoloft DVT: Lovenox Charges/Coding Visit Charges Inpatient E&M: 21247 Subs Hosp L2
--- NOTE | 2021-08-15 12:34 | ECHOL_ITS ---
Reason For Study: PERICARDIAL EFFUSION Procedure This was a limited 2D transthoracic echocardiogram. Exam performed portable in patient room. Left Ventricle Normal left ventricle. The estimated ejection fraction is EF 55-60 %. Pericardium/Pleural Moderate pericardial Effusion with early signs of cardiacpretamponade. MMode/2D Measurements & Calculations LVIDd: 5.4 cm IVSd: 0.73 cm LVIDs: 3.6 cm LVPWd: 0.76 cm FS: 32.0 % ECHO/Echo, Limited Study Interpretation Summary Limited 2 D echo Normal LV systolic function. The estimated ejection fraction is EF 55-60 %. Moderate pericardial Effusion with early signs of cardiac pre-tamponade Ordering Physician: Karan Da Silva Referring Physician: FAITH GARCIA Performed By: Octavia Gordon, RDCS, RVT
[2021-08-15] MEDS: Morphine 2 MG/ML Syringe IV (12:42)
--- NOTE | 2021-08-15 13:11 | CON.PCM.CA_ITS ---
Assessment & Plan Assessment/Plan (1) Chest pain: (2) Pericardial effusion: PLAN: 56-year-old patient was admitted with symptoms of chest pain As a abnormal echocardiogram with evidence of moderate pericardial effusion Patient had history of testicular cancer according to the around 6 years ago underwent orchiectomy. Had a history of hypertension. Repeat bedside echocardiogram showed a moderate pericardial effusion with early signs of cardiac tamponade. Patient has been stable hemodynamically. Cardiac recommendation plan; Patient is awaiting for transfer to [facility] For pericardial window by . HPI Consult Data Date of Consult: 08/15/21 HPI Narrative Reason for Consultation: Moderate pericardial effusionWith pretamponade HPI Narrative: SAURABH MCDANIELS, is a 56 M who presents [facility] Medical History (Updated 08/10/21 @ 17:[address] Maribell Renee MD) Anxiety Depression Hypertension Testicular cancer Home Medications aspirin 81 mg PO DAILY@0800 09/07/16 [History Last Taken 08/10/21 08:00] cholecalciferol (vitamin D3) [Vitamin D] 2,000 unit PO DAILY 09/07/16 [History Last Taken 08/10/21 08:00] garlic 500 mg PO DAILY 09/07/16 [History Last Taken Unknown] omega-3 fatty acids 800 mg PO DAILY 09/07/16 [History Last Taken 08/10/21 08:00] multivitamin [Multiple Vitamins] 1 ea PO DAILY 03/06/18 [History Last Taken 08/10/21 08:00] sertraline 100 mg PO DAILY 05/24/18 [History Last Taken 08/10/21 08:00] metoprolol tartrate 25 mg PO BID 08/11/21 [History Last Taken 08/10/21 08:00] Allergy/AdvReac Type Severity Reaction Status Date / Time No Known Allergies Allergy Verified 08/10/21 13:32 Family History (Updated 08/11/21 @ 15:[address] Karan Da Silva MD) Other Cancer Heart disease Surgical History History of hip surgery History of orchiectomy Social History Smoking Status: Former smoker ROS ROS Narrative Stent review of 14 point symptoms is normal apart from retrosternal chest pain with some radiation to the back which was Worsening over the last 2 to 3 days. Physical Exam Narrative Patient seen and evaluated at bedside along with the nursing staff at bedside He is having symptoms of chest pain when I came to see him Alert orientated x3 Cardiac telemetry review underlying normal sinus. Cardiovascular examination jugular venous pressure not elevated, S1-S2 normal, no systolic or diastolic murmur No pericardial rub, no gallop. Chest examination diminished air entry bilateral. Dimension abdomen soft Examination lower extremity no clubbing no cyanosis no lower extremity edema. Examination of the central nervous system no focal neurological deficit. Objective Data Vital Signs: Vital Signs Temp Pulse Resp BP Pulse Ox 98.3 F 78 16 133/93 H 96 08/15/21 12:40 08/15/21 12:40 08/15/21 12:40 08/15/21 12:40 08/15/21 12:40 Oxygen Flow Rate (L/min) 2 Oxygen Delivery Method Room Air Weight: 203 lb 4.259 oz Body Mass Index (BMI) 27.6 Intake & Output: Intake and Output for Last 24 Hours 08/13/21 08/14/21 08/15/21 23:59 23:59 23:59 Intake Total 480 / 720 480 / 720 960 / 960 Balance 480 / 720 480 / 720 960 / 960 Lab / Micro Data Result Diagrams: 08/15/21 06:09 08/15/21 06:09 Labs: Laboratory Results - last 24 hr 08/15/21 06:09: WBC 9.1, RBC 3.86 L, Hgb 11.2 L, Hct 35.8 L, MCV 92.7, MCH 29.0, MCHC 31.3 L, RDW Std Deviation 48.2 H, RDW Coeff of Jennifer 14.3, Plt Count 377, MPV 11.4, Immature Gran % (Auto) 0.400, Neut % (Auto) 77.7 H, Lymph % (Auto) 13.7 L, [place] % (Auto) 5.7, Eos % (Auto) 2.2, Baso % (Auto) 0.3, Absolute Neuts (auto) 7.0, Absolute Lymphs (auto) 1.24, Nucleated RBC % 0 08/15/21 06:09: Sodium 137, Potassium 4.2, Chloride 103, Carbon Dioxide 27.0, Anion Gap 7, BUN 15, Creatinine 0.87, Estim Creat Clear Calc 101.58, Est GFR (MDRD) Af Amer 116, Est GFR (MDRD) Non-Af 96, BUN/Creatinine Ratio 17.2, Glucose 94, Calcium 8.9 Cardiology Labs/Tests 08/15/21 06:09: WBC 9.1, RBC 3.86 L, Hgb 11.2 L, Hct 35.8 L, MCV 92.7, MCH 29.0, MCHC 31.3 L, Plt Count 377, MPV 11.4, Immature Gran % (Auto) 0.400, Neut % (Auto) 77.7 H, Lymph % (Auto) 13.7 L, [place] % (Auto) 5.7, Eos % (Auto) 2.2, Baso % (Auto) 0.3, Absolute Neuts (auto) 7.0, Nucleated RBC % 0 08/15/21 06:09: Sodium 137, Potassium 4.2, Chloride 103, Carbon Dioxide 27.0, Anion Gap 7, BUN 15, Creatinine 0.87, Est GFR (MDRD) Af Amer 116, Est GFR (MDRD) Non-Af 96, BUN/Creatinine Ratio 17.2, Glucose 94, Calcium 8.9 Rhythm: Normal sinus rhythm with PVCs. EKG: Normal sinus rhythm ECHO: LV function is normal Estimated ejection fraction 55 Stage I diastolic dysfunction Moderate pericardial effusion, measures 1.8 Early tamponade cannot be excluded
--- NOTE | 2021-08-15 13:36 | NURSING ---
transfer center called to request updated vitals at 1335.
--- NOTE | 2021-08-15 14:06 | DS.PCM_ITS ---
Providers Date of Admission: 08/11/21 Primary Care Physician: Dr. Flora Sarmiento MD Consultations 08/15/21 07:46 Consult: Cardiology Routine Consulting Provider: Sofi Rodriguez Reason for Consult: pericardial effusion EMERGENT Consult: No MD Notified: Yes Date Notified: 08/15/21 Time Notified: 09:41 Method of Notification: Text Reason For Visit: PERICARDIAL EFFUSION Diagnosis Discharge Diagnosis (1) Chest pain: Status: Acute Code(s): R07.9 - Chest pain, unspecified (2) Pericardial effusion: Status: Acute Code(s): I31.3 - Pericardial effusion (noninflammatory) Medications at Discharge Home Medications aspirin 81 mg PO DAILY@0800 09/07/16 cholecalciferol (vitamin D3) [Vitamin D] 2,000 unit PO DAILY 09/07/16 garlic 500 mg PO DAILY 09/07/16 omega-3 fatty acids 800 mg PO DAILY 09/07/16 multivitamin [Multiple Vitamins] 1 ea PO DAILY 03/06/18 sertraline 100 mg PO DAILY 05/24/18 metoprolol tartrate 25 mg PO BID 08/11/21 Hospital Course Operations None Procedures 2-D Echocardiogram Summary of Care Provided Minutes Spent on Discharge: 42 Hospital Course: Per HPI: SAURABH MCDANIELS, is a 56 M who presents with right lower chest and right upper quadrant abdominal pain. Chest pain symptoms star betito about 3 days prior to his admission. In the ER he did go into A. fib with RVR and did convert with a dose of Cardizem. CT of the chest did not show PE but did show a moderate pericardial effusion as well as cholelithiasis. Cardiology was consulted and they recommended an echocardiogram which confirmed a moderate sized pericardial effusion and recommended transfer to tertiary care center. He has been accepted at , however they do not have a bed and he has been in the ER for 18 hours. Now he states that most of his discomfort is abdominal discomfort, which has been gradually getting worse over the last several weeks. He denies any association with food and has not noticed anything making it better or worse. Hospital Course: 1. Moderate pericardial effusion with new onset paroxysmal A. fib and early cardiac [id number] male presented to the hospital with right lower chest and right upper quadrant abdominal pain there was some concern for ch olecystitis however the CT scan of his chest was read as a moderate pericardial effusion so cardiology was consulted and recommended transfer after evaluation with an echo demonstrated moderate pericardial effusion and that early tamponade cannot be excluded. accepted him in transfer however did not have a bed. On day 4 of his admission cardiology was consulted secondary to worsening chest pa in and shortness of breath. A repeat echo was obtained which clearly demonstrated early cardiac tamponade therefore the case was rediscussed with who accepted him immediately. Will plan for discharge today with direct transfer to where he will likely need a pericardial window by cardiothoracic surgery. His aspirin has been on hold since admission and he has not been started on any anticoagulation for paroxysmal A. fib. Weight / BMI Weight Weight: 203 lb 4.259 oz Body Mass Index (BMI) 27.6 ABG / Lab / Microbiology Data Result Diagrams: 08/15/21 06:09 08/15/21 06:09 Laboratory: Laboratory Results - last 24 hr 08/15/21 06:09: WBC 9.1, RBC 3.86 L, Hgb 11.2 L, Hct 35.8 L, MCV 92.7, MCH 29.0, MCHC 31.3 L, RDW Std Deviation 48.2 H, RDW Coeff of Jennifer 14.3, Plt Count 377, MPV 11.4, Immature Gran % (Auto) 0.400, Neut % (Auto) 77.7 H, Lymph % (Auto) 13.7 L, [place] % (Auto) 5.7, Eos % (Auto) 2.2, Baso % (Auto) 0.3, Absolute Neuts (auto) 7. 0, Absolute Lymphs (auto) 1.24, Nucleated RBC % 0 08/15/21 06:09: Sodium 137, Potassium 4.2, Chloride 103, Carbon Dioxide 27.0, Anion Gap 7, BUN 15, Creatinine 0.87, Estim Creat Clear Calc 101.58, Est GFR (MDRD) Af Amer 116, Est GFR (MDRD) Non-Af 96, BUN/Creatinine Ratio 17.2, Glucose 94, Calcium 8.9 Microbiology: Microbiology 08/10/21 17:16 Nasal Secretion SARS-CoV-2 Antigen (Rapid) - Final Meaningful Use Info Meaningful Use Diagnoses (Choose all that apply): None applicable Discharge Plan Admission Admit Date/Time: 08/11/21 08:57 Attending Provider: Karan Da Silva Primary Care Provider: Flora Sarmiento Consulting Providers: Sofi Rodriguez Discharge Orders/Prescriptions Prescriptions: No Action omega-3 fatty acids 1,000 MG capsule 800 mg PO DAILY RF: 0 aspirin 81 MG tablet 81 mg PO DAILY@0800 RF: 0 garlic 500 MG capsule 500 mg PO DAILY RF: 0 cholecalciferol (vitamin D3) [Vitamin D3] 1,000 UNIT tablet 2,000 unit PO DAILY RF: 0 multivitamin [Multiple Vitamins] 1 EACH tablet 1 ea PO DAILY RF: 0 sertraline 100 MG tablet 100 mg PO DAILY RF: 0 metoprolol tartrate 25 mg tablet 25 mg PO BID RF: 0 Referrals / Follow Up: Flora Sarmiento MD [Primary Care Provider] - Disposition Discharge Orders: Discharge Patient (Routine); Ordered 08/15/21 Ordered By: Dr. Karan Da Silva Charges/Coding Visit Charges Inpatient E&M: 47244 Disch Hosp
--- NOTE | 2021-08-15 14:18 | NURSING ---
Report called to BRIJESH Cano at 1418.
== END 2021-08-15 16:15 | disposition short-term general hospital (02) | DRG 315 ==
LOC: ED 17:15 → PCU 08-11 09:04
PROVIDERS: Admitting Provider Family Medicine; Emergency Provider Emergency Medicine; PCP Family Medicine; Visit Provider Family Medicine
DX: I31.3 Pericardial effusion (noninflammatory) (principal); J98.11 Atelectasis; I31.4 Cardiac tamponade; K80.20 Calculus of gallbladder without cholecystitis without obstruction; I49.3 Ventricular premature depolarization; F41.9 Anxiety disorder, unspecified; I48.0 Paroxysmal atrial fibrillation; F32.A Depression, unspecified; Z85.47 Personal history of malignant neoplasm of testis; Z79.82 Long term (current) use of aspirin; Z79.899 Other long term (current) drug therapy; Z87.891 Personal history of nicotine dependence
CPT/HCPCS: 36415; 71045; 74176; 80048; 80076; 83690; 84484; 85025; 85652; 86140; 87426; 93005; 93306; 93308; 99284; 99406; Q9967; A4216; J2405

== ENCOUNTER → 2021-10-05 12:36 | Outpatient (CLI) | payer OTHER, SELFPAY ==
--- NOTE | 2021-10-05 16:00 | MRI_ITS ---
EXAM: MR LEFT LOWER EXTREMITY WITHOUT INTRAVENOUS CONTRAST, ANKLE CLINICAL INDICATION: LEFT ANKLE ARTHRITIS/ PT TENDONITIS TECHNIQUE: Multiplanar and multisequence MR images of the left ankle without intravenous contrast. This report was created using [employer] report generation technology. COMPARISON: xr 10.03.2020 FINDINGS: LIGAMENTS: ANTERIOR TALOFIBULAR: Unremarkable. Intact. POSTERIOR TALOFIBULAR: Unremarkable. Intact. ANTERIOR TIBIOFIBULAR: Unremarkable. Intact. POSTERIOR TIBIOFIBULAR: Unremarkable. Intact. CALCANEOFIBULAR: Unremarkable. Intact. DELTOID: Unremarkable. Intact. SPRING: Unremarkable. Intact. LISFRANC: Unremarkable. Intact. TENDONS: ACHILLES: There is a calcaneal spur. There is an enthesophyte involving the posterior superior calcaneus at the site of insertion of the Achilles tendon. FLEXOR: Unremarkable. Intact. EXTENSOR: Unremarkable. Intact. PERONEAL: Unremarkable. Intact. TIBIALIS ANTERIOR: Unremarkable. Intact. TIBIALIS POSTERIOR: Unremarkable. Intact. MUSCLES: Unremarkable. Normal bulk and signal. FLUID: Unremarkable. No joint effusion. SINUS TARSI: Unremarkable. Normal fat in the sinus tarsi. TARSAL TUNNEL: Unremarkable. PLANTAR FASCIA: Unremarkable. Intact. CARTILAGE: Unremarkable. No osteochondral lesion. Articular cartilage intact. BONES/JOINTS: Osteochondral defect of the medial talar dome. No fracture or marrow edema. OTHER SOFT TISSUES: Unremarkable. MRI/Lower Ext Joint Only (Routine) IMPRESSION: 1. There is a calcaneal spur. There is an enthesophyte involving the posterior superior calcaneus at the site of insertion of the Achilles tendon. 2. Osteochondral defect of the medial talar dome. Electronically Signed: Jose Rasheed MD at 19:56 EST , Service support ,
== END ==
PROVIDERS: PCP Family Medicine; Visit Provider Orthopaedic Surgery
DX: M76.822 Posterior tibial tendinitis, left leg (principal); M19.071 Primary osteoarthritis, right ankle and foot
CPT/HCPCS: 73721